=== PATIENT | female | born 1985 ===

== ENCOUNTER 2023-01-24 09:49 | Emergency (ER) | payer OTHER, SELFPAY ==
--- NOTE | ~2023-01-24 | US_ITS ---
EXAMINATION: US PELVIS CLINICAL INFORMATION: Left lower quadrant pain COMPARISON: CT scan abdomen and pelvis 01/24/2023 TECHNIQUE: Ultrasound of the pelvis is performed using both transabdominal and transvaginal transducers along with Doppler. Transvaginal imaging is performed due to inadequate visualization transabdominally. FINDINGS: The uterus and cervix have been removed. Adnexa: There is normal arterial and vascular color flow to the left ovary. There is no left ovarian torsion. The right ovary has been removed. Left ovary measures 2.8 x 2.4 x 2.3 cm. Volume 8.1 mL. Within the left ovary, there is a 2.2 x 1.4 x 1.7 cm complex focus,? Complex cyst versus mass. There is a small amount of free fluid within the left adnexa. US/US pelvic and transvaginal IMPRESSION: 1. Prior hysterectomy and right oophorectomy. 2. 2.2 cm complex focus is seen within the left ovary.? Complex cyst versus mass. Follow-up ultrasound in 2-3 months is suggested.
--- NOTE | ~2023-01-24 | US_ITS ---
EXAMINATION: US PELVIS CLINICAL INFORMATION: Left lower quadrant pain COMPARISON: CT scan abdomen and pelvis 01/24/2023 TECHNIQUE: Ultrasound of the pelvis is performed using both transabdominal and transvaginal transducers along with Doppler. Transvaginal imaging is performed due to inadequate visualization transabdominally. FINDINGS: The uterus and cervix have been removed. Adnexa: There is normal arterial and vascular color flow to the left ovary. There is no left ovarian torsion. The right ovary has been removed. Left ovary measures 2.8 x 2.4 x 2.3 cm. Volume 8.1 mL. Within the left ovary, there is a 2.2 x 1.4 x 1.7 cm complex focus,? Complex cyst versus mass. There is a small amount of free fluid within the left adnexa. US/US pelvic ovarian doppler IMPRESSION: 1. Prior hysterectomy and right oophorectomy. 2. 2.2 cm complex focus is seen within the left ovary.? Complex cyst versus mass. Follow-up ultrasound in 2-3 months is suggested.
--- NOTE | ~2023-01-24 | CT_ITS ---
EXAMINATION: CT abdomen pelvis wo IV con CLINICAL INFORMATION: Reason for Exam L sided pelvic pain without contrast COMPARISON: No prior CT available for comparison. TECHNIQUE: Multidetector volumetric imaging was performed from the superior aspect of the liver through the pubic symphysis 100 mL of Omnipaque 350 injected Sagittal and coronal reformatted images were obtained on the technologist's workstation. This CT examination was performed using dose optimization techniques as appropriate, variously including the following: *Automated exposure control *Adjustment of mA and/or kV according to patient size (this includes techniques or standardized protocols for targeted exams where dose is matched to indication/reason for exam; i.e. extremities or head) *Use of iterative reconstruction technique DLP: 335 mGy-cm FINDINGS: LOWER THORAX: Included lung bases are clear. HEPATOBILIARY: No focal hepatic lesions. No biliary ductal dilatation. GALLBLADDER: Gallbladder unremarkable. SPLEEN: Spleen is normal in size. PANCREAS: No focal mass or ductal dilatation. STOMACH AND GASTROINTESTINAL TRACT: Stomach is grossly unremarkable. There is no bowel distention or thickening. Appendix could not be visualized obscured by crowding of bowel loops and paucity of intraperitoneal fat. Excess amount of stool in the colon suggests possible constipation. ADRENALS: No adrenal nodules. KIDNEYS/URETERS: No hydronephrosis, stones or solid mass lesions. URINARY BLADDER: Partially decompressed. PELVIC VISCERA: Fluid-filled cystic structure in the right side of the pelvis abutting the rectum roughly measures 3.4 cm possibly of right ovarian origin in this patient age group likely follicle. No follow-up imaging required. PERITONEUM: No free air or fluid. LYMPH NODES: No lymphadenopathy. VASCULAR:Abdominal aorta normal in size, no aneurysm found. BONES, ABDOMINAL WALL AND SOFT TISSUES: Age-appropriate changes of the spine and skeletal system, no destructive osteolytic or osteosclerotic bone lesion found CT/CT abdomen pelvis wo IV con IMPRESSION: * No CT evidence of acute intra-abdominal process to explain patient's pain symptoms. * Fluid-filled cystic structure in the right side of the pelvis 3.4 cm possibly of right ovarian origin in this patient age group likely follicle. No follow-up imaging required. * Possible constipation. Please correlate with patient's clinical history.
[2023-01-24 10:13] VITALS: BP 107/63; PULSE 74; RESP 18; TEMP 36.6; O2SAT 95; BMI 20.5
[2023-01-24 10:36] LABS: MANUAL DIFF FLAG NO
[2023-01-24 10:40] LABS: Appearance Urine Cloudy; Basophils Absolute Auto 0.1 X10*3/uL (0.0-0.2); Basophils Percent Auto 0.8 % (0-2); Color Urine Yellow; Eosinophils Absolute Auto 0.2 X10*3/uL (0.0-0.4); Eosinophils Percent Auto 3.5 % (0-4); Glucose Urine UA Negative (Negative); Hematocrit 38.6 % (37.0-47.0); Hemoglobin 12.5 g/dl (12.0-16.0); Imm Gran Abs Auto 0.02 X10*3/uL (0.00-0.03); Imm Gran Pct Auto 0.3 % (0.0-0.4); Leukocyte Esterase Urine Moderate (2+) (Negative); Lymphocytes Absolute Auto 1.6 X10*3/uL (1.2-4.9); Lymphocytes Percent Auto 25.1 % (20-40); Mean Corpuscular HGB Conc 32.4 g/dl (31.0-35.0); Mean Corpuscular Volume 89.6 fL (80.0-98.0); Mean Platelet Volume 9.7 fL (9.4-12.3); Monocytes Absolute Auto 0.6 X10*3/uL (0.1-1.2); Monocytes Percent Auto 9.8 % (2-11); Neutrophils Percent Auto 60.5 % (45-73); Nitrite Urine Positive (Negative); Platelet Count 399 X10*3/uL (160-400); Red Blood Count 4.31 X10*6/uL (4.20-5.50); Red Cell Distribution Width 14.6 % (11.0-16.0); Specific Gravity - Urine 1.025 (1.005-1.025); UMIC TRIGGER UACC YES; Urine Blood Large (3+) (Negative); Urine Ketones Negative (Negative); Urine Protein 100 (2+) mg/dL (Neg-Trace); White Blood Count 6.5 X10*3/uL (4.8-10.8)
[2023-01-24 10:42] LABS: Bacteria Urine 2+ (None Seen); Hyaline Casts Urine 0-2 /LPF (0-2); RBC Urine >20 /HPF (0-2); Squamous Epithelial Cell Urine 0-2 /HPF (0-2); UACC Culture Trigger YES; WBC Urine >50 /HPF (0-5)
--- NOTE | 2023-01-24 10:49 | ED_ITS ---
HPI - Abdominal Pain General Chief Complaint: Abdominal Pain Stated Complaint: Bladder pain/Blood in urine? Time Seen by Provider: 01/24/23 10:29 Source: patient Mode of arrival: ambulatory Limitations: no limitations History of Present Illness HPI narrative: 37 year old female presents for evaluation of LLQ abd pain/ pelvic pain, burning w/ urination and blood in urine X few days. Patient reports pain is constant, severe and has been present for a few days. Doesn't think she is has a hx of hysterectomy. Hx of ovarian cysts however w/ r sided oophorectomy. Patient denies nausea, vomiting, headache, vision canges, dizziness, fevers, chills, flank pain, cp, sob , vaginal d/c & bleeding Related Data Previous Rx's Medication Instructions Recorded cefuroxime axetil 250 mg tablet 250 mg PO BID 7 days #14 tabs 01/24/23 ketorolac 10 mg tablet 10 mg PO TID PRN pain 5 days #15 01/24/23 tabs Allergies Allergy/AdvReac Type Severity Reaction Status Date / Time ciprofloxacin [From Cipro] Allergy Hives Verified 01/24/23 10:17 duloxetine [From Cymbalta] Allergy Shortness Verified 01/24/23 10:17 of Breath Review of Systems Review of Systems Constitutional : No Weight loss, No Fever, No Chills, No Fatigue, No Malaise ENT/Mouth : No sore throat, No Rhinorrhea Eyes: No Eye Pain, No Swelling, No Redness Cardiovascular : No Chest Pain, No SOB, No Dyspnea on Exertion, No Orthopnea, No Edema, No Palpitations Respiratory : No Cough, No Sputum, No Wheezing Gastrointestinal : No Nausea, No Vomiting, No Diarrhea, No Constipation, + abdominal Pain, No Hematochezia, No Melena, + pelvic pain Genitourinary : No Dysuria, No Urinary Frequency, No Hematuria, Musculoskeletal : No joint pain, No Myalgias, No Joint Swelling Skin : No Skin Lesions, No rash Neuro : No Weakness, No Numbness, No Dizziness, No Headache Psych : No Anxiety/Panic, No Depression All other systems reviewed and are negative Yes all other systems are reviewed and are negative PMFSH Past Medical History Attestation statement: The following information was validated with the patient. Source: old records reviewed and nursing notes reviewed Social History Social History Smoked in Last 30 Days: No Use of substances other than those prescribed or required for medical reasons: No Advance Directives: No Advance Directives Information Provided: Yes Patient : No Physical Exam ED Vital Signs: Vital Signs - 24 hr 01/24/23 10:13 01/24/23 10:51 01/24/23 12:37 Temperature 97.8 F 99.0 F 98.3 F Pulse Rate 74 73 55 Respiratory Rate 18 18 16 Blood Pressure 107/63 104/62 107/66 Pulse Oximetry 95 100 100 Oxygen Delivery Method Room Air Room Air Room Air 01/24/23 14:00 Temperature Pulse Rate 60 Respiratory Rate 16 Blood Pressure 108/61 Pulse Oximetry 100 Oxygen Delivery Method Room Air BMI result Body Mass Index 20.5 vss Appearance: Alert.? Oriented X3.?Patient appears uncomfortable. Head: Normocephalic, atraumatic, no step-offs or deformities Eyes: Pupils equal, round and reactive to light.? Neck: Normal inspection.? Neck supple.? CVS: Normal heart rate and rhythm.? Pulses normal.? Respiratory: No respiratory distress.? Breath sounds normal.? Abdomen: Soft and + LLQ tenderness on exam .? Skin: Skin warm and dry.? Normal skin color.? Normal skin turgor.? Extremities: No lower extremity edema.? No calf ttp. 5/5 strength to bilateral upper and lower extremities Neuro: Oriented X 3.? No motor deficit.? No sensory deficit. CN 2-12 intact Course Reevaluation(s) Reevaluation #1: CBC unremarkable. Chemistry with a low glucose initially, repeat glucose improved. Patient's lactic acid normal. Normal lipase normal beta hCG. UA with infection, will prescribe p.o. antibiotics for home. Ultrasound with prior hysterectomy and right oophorectomy, 2.2 cm complex focus within the left ovary question cyst versus mass I did discuss this with patient she tells me she did have a OBGYN doctor however she recently moved from [place], will give her a number to call for an OBGYN appointment here. Recommend repeat ultrasound in 2- 3 months. Time: 15:20 Reevaluation #2: Delay in obtaining results from imaging secondary to a delay with [facility]. Will continue to monitor Time: 16:14 Reevaluation #3: CT abdomen pelvis with no evidence of acute intra-abdominal process to explain patient's symptoms. Fluid-filled cystic structure in the right side of pelvis 3.48 cm possibly of right ovarian origin of the patient's age group, no follow- up imaging required. Possible constipation, patient complaining of constipation. Will treat for UTI discharge home. Patient feeling better. Educated patient on diagnosis and treatment plan, answered all question, patient verbalizes understanding. At this time patient will be discharged home, advised to return with new or worsening symptoms. Educated on worrisome signs and symptoms and when to return. At this time I feel comfortable discharge home. Time: 16:35 Medical Decision Making Medical Decision Making [facility] Narrative: 1052 37 year old female presents w/ UTI sx X few days w/ a/c LLQ pain and pelvic pain on left side. PE w/ LLQ discomfort Likely UTI vs cystitis vs diverticulitis vs pylo vs obstructing uropathy. Unlikely torsion, ectopic pregancy, ruptured ovarian cyst, acute abdomen, appendicitis, cholecysitis, obstruction. Plan- UA, labs, imaging Differential Diagnosis Differential Diagnoses: The differential diagnosis associated with the presentation includes Likely UTI vs cystitis vs diverticulitis vs pylo vs obstructing uropathy. Unlikely torsion, ectopic pregancy, ruptured ovarian cyst, acute abdomen, appendicitis, cholecysitis, obstruction. Admission/Observation Consideration of admission/observation: Escalation of care including admission/observation considered Lab Data [facility] Lab Attestation statement: I reviewed the patient's lab results. 01/24/23 10:30 01/24/23 10:30 Labs: Lab Results 01/24/23 01/24/23 01/24/23 Range/Units 10:30 11:23 14:51 WBC 6.5 (4.8-10.8) X10*3/uL RBC 4.31 (4.20-5.50) X10*6/uL Hgb 12.5 (12.0-16.0) g/dl Hct 38.6 (37.0-47.0) % MCV 89.6 (80.0-98.0) fL MCH 29.0 (27.0-33.0) pg MCHC 32.4 (31.0-35.0) g/dl RDW 14.6 (11.0-16.0) % Plt Count 399 (160-400) X10*3/uL MPV 9.7 (9.4-12.3) fL Immature Gran % (Auto) 0.3 (0.0-0.4) % Neut % (Auto) 60.5 (45-73) % Lymph % (Auto) 25.1 (20-40) % [place] % (Auto) 9.8 (2-11) % Eos % (Auto) 3.5 (0-4) % Baso % (Auto) 0.8 (0-2) % Lymph # (Auto) 1.6 (1.2-4.9) X10*3/uL [place] # (Auto) 0.6 (0.1-1.2) X10*3/uL Eos # (Auto) 0.2 (0.0-0.4) X10*3/uL Baso # (Auto) 0.1 (0.0-0.2) X10*3/uL Abs Immat Gran (auto) 0.02 (0.00-0.03) X10*3/uL Absolute Neuts (auto) 4.0 (2.0-8.3) x10*3/uL Absolute Nucleated RBC 0.000 (0.0-0.012) X10*3/uL Nucleated RBC % (auto) 0.0 (0.0-0.2) /100WBC Sodium 141 (135-145) mmol/L Potassium 4.1 (3.3-5.1) mmol/L Chloride 108 (96-108) mmol/L Carbon Dioxide 27 (22-29) mmol/L Anion Gap 10 L (12-20) BUN 15 (9-16) mg/dL Creatinine 0.74 (0.5-1.4) mg/dL Estim Creat Clear Calc 86.0 Estimated GFR > 60 POC Glucose 74 (60-115) mg/dL Random Glucose 52 L* (60-115) mg/dL Lactic Acid 1.2 (0.5-2.0) mmol/L Calcium 9.7 (8.4-10.2) mg/dL Total Bilirubin 0.3 (0.0-1.0) mg/dL Direct Bilirubin 0.1 (0.0-0.5) mg/dL AST 18 (5-31) U/L ALT 13 (0-31) U/L Alkaline Phosphatase 94 (39-117) U/L Total Protein 7.5 (6.5-8.0) g/dL Albumin 4.5 (3.5-5.0) g/dL Lipase 28 (8-78) U/L Beta HCG, Quant < 2 mIU/mL Urine Color Yellow Urine Appearance Cloudy Urine pH 6.0 (5.0-9.0) Ur Specific [place] 1.025 (1.005-1.025) Urine Protein 100 (2+) H (Neg-Trace) mg/dL Urine Glucose (UA) Negative (Negative) mg/dL Urine Ketones Negative (Negative) mg/dL Urine Blood Large (3+) H (Negative) Urine Nitrite Positive H (Negative) Ur Leukocyte Esterase Moderate (2+) H (Negative) Urine RBC >20 H (0-2) /HPF Urine WBC >50 H (0-5) /HPF Ur Squamous Epith Cells 0-2 (0-2) /HPF Urine Bacteria 2+ (None Seen) Hyaline Casts 0-2 (0-2) /LPF Urine Test NEGATIVE (NEGATIVE) Independent Interpretation I performed an independent interpretation of an: Ultrasound (There is no left ovarian torsion. The right ovary has been removed. Left ovary measures 2.8 x 2.4 x 2.3 cm. Volume 8.1 mL. Within the left ovary, there is a 2.2 x 1.4 x 1.7 cm complex focus,? Complex cyst versus mass. There is a small amount of free fluid within the left adnexa. ) and CT Scan (CT/CT abdomen pelvis wo IV con IMPRESSION: * No CT evidence of acute intra-abdominal process to explain patient's pain symptoms. * Fluid-filled cystic structure in the right side of the pelvis 3.4 cm possibly of right ovarian origin in this patient age group likely follicle. No follow-up imag) Radiology Impression Discussion of test interpretation with radiology: I have reviewed the radiologist's reading. Chronic Conditions Patient?s care impacted by: Other (ovarian cysts ) Medications Administered Discontinued Medications Generic Name Dose Route Start Last Admin Trade Name Freq PRN Reason Stop Dose Admin Glucose 15 gm 01/24/23 10:55 01/24/23 11:13 Glucose Gel 15 Gm Gel..Gram. PO 01/24/23 10:56 15 gm ONCE ONE Administration Sodium Chloride 1,000 mls @ 999 mls/hr 01/24/23 11:00 01/24/23 12:58 Ns IV 01/24/23 12:00 Infused .Q1H1M KIM Infusion Ceftriaxone Sodium 1 gm/ 50 mls @ 100 mls/hr 01/24/23 10:56 01/24/23 12:13 Sodium Chloride IV 01/24/23 11:25 Infused ONCE ONE Infusion Ketorolac Tromethamine 30 mg 01/24/23 11:20 01/24/23 11:44 Ketorolac Tromethamine 15 Mg/Ml Vial IVPUSH 01/24/23 11:21 30 mg ONCE ONE Administration Morphine Sulfate 2 mg 01/24/23 14:07 01/24/23 14:12 Morphine Sulfate 2 Mg/Ml Cartridge IVPUSH 01/24/23 14:08 2 mg ONCE ONE Administration Protocol Critical Care Time Critical Care Time Critical Care Time: No Discharge Plan Discharge Clinical Impression: UTI (urinary tract infection), Mass, ovarian, Abdominal pain Patient Disposition: Home, Self-Care Instructions: Urinary Tract Infection in Women (DC) Additional Instructions: Take your medications as prescribed. If you were prescribed antibiotics today, it is important that you take your medication to their entirety, do not skip any doses, do not finish them early. Follow-up with your primary care provider this week. Follow up with OBGYN Return to the emergency department with new or worsening symptoms. Such as fevers, chills, chest pain, shortness of breath, nausea, vomiting, dizziness, headache, vision changes, lethargy In case of emergency call 911 Toradol has been sent to your pharmacy, you tolerated this well in the department. Please take this as prescribed do not take this with ibuprofen, or other NSAIDs, do not mix this with alcohol. Side effects of this medication including increased risk for bleeding and possible kidney injury. CT/CT abdomen pelvis wo IV con IMPRESSION: * No CT evidence of acute intra-abdominal process to explain patient's pain symptoms. * Fluid-filled cystic structure in the right side of the pelvis 3.4 cm possibly of right ovarian origin in this patient age group likely follicle. No follow-up imaging required. * Possible constipation. Please correlate with patient's clinical history. US/US pelvic and transvaginal IMPRESSION: 1. Prior hysterectomy and right oophorectomy. 2. 2.2 cm complex focus is seen within the left ovary.? Complex cyst versus mass. Follow-up ultrasound in 2-3 months is suggested. Prescriptions: New ketorolac 10 mg tablet 10 mg PO TID PRN (Reason: pain) 5 Days Qty: 15 0RF cefuroxime axetil 250 mg tablet 250 mg PO BID 7 Days Qty: 14 0RF Referrals: Physician,Richard J [Primary Care Provider] - 2 days Timmy Meyer MD [Physician] - 2 days Stand Alone Forms: Work/School Release
[2023-01-24 10:51] VITALS: BP 104/62; PULSE 73; RESP 18; TEMP 37.2; O2SAT 100
[2023-01-24 10:56] LABS: Alanine Aminotransferase 13 U/L (0-31); Albumin Level 4.5 g/dL (3.5-5.0); Alkaline Phosphatase 94 U/L (39-117); Anion Gap 10 (12-20); Aspartate Amino Transferase 18 U/L (5-31); Bilirubin Direct 0.1 mg/dL (0.0-0.5); Bilirubin Total 0.3 mg/dL (0.0-1.0); Blood Urea Nitrogen 15 mg/dL (9-16); Calcium 9.7 mg/dL (8.4-10.2); Carbon Dioxide 27 mmol/L (22-29); Chloride 108 mmol/L (96-108); Estimated Glomerular Filt Rate > 60; Glucose Random 52 mg/dL (60-115); Lipase 28 U/L (8-78); Potassium 4.1 mmol/L (3.3-5.1); Sodium 141 mmol/L (135-145); Total Protein 7.5 g/dL (6.5-8.0)
--- NOTE | 2023-01-24 11:03 | PC.NURSE ---
vss and up to date aside from low grade fever (99.0 orally) at this time. pt comes in today d/t generalized body aches and pain. pt c/o abdominal pain/left sided flank pain/dysuria/hematuria/fever/chills for the past few days. pt awaiting CT/aware of plan of care at this time. respirations even and unlabored. resting comfortably w/ the lights dimmed at this time. call patel placed within reach.
[2023-01-24] MEDS: Glucose Gel 15 GM GEL..GRAM. PO (11:13)
[2023-01-24 11:42] LABS: Lactic Acid 1.2 mmol/L (0.5-2.0)
[2023-01-24] MEDS: cefTRIAXone sodium 1 GM in 0.9 % Sodium Chloride 50 ML IV (11:43)
[2023-01-24] MEDS: Ketorolac Tromethamine 15 MG/ML VIAL 30 MG IVPUSH (11:44)
[2023-01-24] MEDS: 0.9 % Sodium Chloride 1,000 ML 999 ML IV (11:44)
--- NOTE | 2023-01-24 11:48 | PC.NURSE ---
labs obtained and sent to lab by [employer] 20gIV placed in left AC w/o complications. medications administered per provider order. pt resting comfortably w/ lights dimmed. call patel placed within reach.
--- NOTE | 2023-01-24 11:49 | PC.NURSE ---
ultrasound bedside transporting pt.
[2023-01-24 12:36] LABS: UPreg QC Valid YES; Urine Pregnancy NEGATIVE (NEGATIVE)
--- NOTE | 2023-01-24 12:36 | PC.NURSE ---
pt returned from ultrasound. vss and up to date at this time. pt c/o 8/10 abdominal pain post medication administration. pt states pain level increased d/t pressure of ultrasound imaging. will notify provider. call patel placed within reach.
[2023-01-24 12:37] VITALS: BP 107/66; PULSE 55; RESP 16; TEMP 36.8; O2SAT 100
[2023-01-24 12:56] LABS: HCG Quantitative < 2 mIU/mL
[2023-01-24 14:00] VITALS: BP 108/61; PULSE 60; RESP 16; O2SAT 100
[2023-01-24] MEDS: Morphine Sulfate 2 MG/ML CARTRIDGE IVPUSH (14:12)
--- NOTE | 2023-01-24 14:15 | PC.NURSE ---
vss and up to date at this time. pt still verbalizing 8/10 generalized body pain at this time. pt medicated per provider order. will reassess pain level shortly. pt c/o nausea/requesting medication. will notify provider.
--- NOTE | 2023-01-24 14:51 | PC.NURSE ---
pt states pain level decreased post medication administration and states that the pain level is now a 1/10 at this time. pt resting comfortably in no apparent distress at this time w/ the lights dimmed. call patel placed within reach.
[2023-01-24 14:55] LABS: Glucose, Whole Blood 74 mg/dL (60-115)
== END 2023-01-24 16:44 | disposition home or self-care (01) ==
PROVIDERS: Physician Assistant; Emergency Provider Student in an Organized Health Care Education/Training Program
DX: N39.0 Urinary tract infection, site not specified (principal); B96.20 Unspecified Escherichia coli [E. coli] as the cause of diseases classified elsewhere; N83.201 Unspecified ovarian cyst, right side; R10.32 Left lower quadrant pain; R10.2 Pelvic and perineal pain; Z90.710 Acquired absence of both cervix and uterus; Z90.721 Acquired absence of ovaries, unilateral
CPT/HCPCS: 36415; 74176; 76830; 76856; 80048; 80076; 81001; 81025; 82947; 83605; 83690; 84702; 85025; 87040; 87086; 87088; 87186; 93975; 96365; 96375; 99284; 99285; J0696; J1885; J2270

== ENCOUNTER 2023-12-07 07:54 | Outpatient (AMB) | payer OTHER, SELFPAY ==
[2023-12-07 08:01] VITALS: BP 110/72; BMI 22.3
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
== END 2023-12-07 09:42 | disposition home or self-care (01) ==
PROVIDERS: PCP Student in an Organized Health Care Education/Training Program; Visit Provider Nurse Practitioner Family
DX: G43.009 Migraine without aura, not intractable, without status migrainosus (principal); H53.2 Diplopia; R42 Dizziness and giddiness; R26.9 Unspecified abnormalities of gait and mobility; G47.9 Sleep disorder, unspecified; R06.83 Snoring; R06.81 Apnea, not elsewhere classified
CPT/HCPCS: 99204

== ENCOUNTER → 2023-12-07 07:54 | Outpatient (BNVA) | payer OTHER, SELFPAY | PROVIDERS: PCP Student in an Organized Health Care Education/Training Program; Visit Provider Nurse Practitioner Family | DX: G43.009 Migraine without aura, not intractable, without status migrainosus (principal); G47.9 Sleep disorder, unspecified; H53.2 Diplopia; R42 Dizziness and giddiness; R26.9 Unspecified abnormalities of gait and mobility; R06.83 Snoring; R06.81 Apnea, not elsewhere classified | CPT/HCPCS: 99202 ==

== ENCOUNTER 2023-12-20 10:45 | Outpatient (REF) | payer OTHER, SELFPAY ==
[2023-12-20 18:03] LABS: MANUAL DIFF FLAG NO
[2023-12-20 18:14] LABS: Basophils Absolute Auto 0.1 X10*3/uL (0.0-0.2); Basophils Percent Auto 1.6 % (0-2); Eosinophils Absolute Auto 0.3 X10*3/uL (0.0-0.4); Eosinophils Percent Auto 5.8 % (0-4); Hematocrit 40.2 % (37.0-47.0); Hemoglobin 13.2 g/dl (12.0-16.0); Imm Gran Abs Auto 0.01 X10*3/uL (0.00-0.03); Imm Gran Pct Auto 0.2 % (0.0-0.4); Lymphocytes Absolute Auto 1.8 X10*3/uL (1.2-4.9); Lymphocytes Percent Auto 41.2 % (20-40); Mean Corpuscular HGB Conc 32.8 g/dl (31.0-35.0); Mean Corpuscular Hemoglobin 29.5 pg (27.0-33.0); Mean Corpuscular Volume 89.9 fL (80.0-98.0); Mean Platelet Volume 10.2 fL (9.4-12.3); Monocytes Absolute Auto 0.5 X10*3/uL (0.1-1.2); Monocytes Percent Auto 11.1 % (2-11); Neutrophils Absolute Auto 1.7 x10*3/uL (2.0-8.3); Neutrophils Percent Auto 40.1 % (45-73); Platelet Count 376 X10*3/uL (160-400); Red Blood Count 4.47 X10*6/uL (4.20-5.50); Red Cell Distribution Width 13.5 % (11.0-16.0); White Blood Count 4.3 X10*3/uL (4.8-10.8)
[2023-12-20 18:32] LABS: Rheumatoid Factor < 13.0 IU/mL (<15.0)
[2023-12-20 18:36] LABS: Alanine Aminotransferase 19 U/L (0-31); Albumin Level 4.8 g/dL (3.5-5.0); Alkaline Phosphatase 101 U/L (39-117); Anion Gap 14 (12-20); Aspartate Amino Transferase 20 U/L (5-31); Bilirubin Total 0.4 mg/dL (0.0-1.0); Blood Urea Nitrogen 14 mg/dL (9-16); Calcium 9.7 mg/dL (8.4-10.2); Carbon Dioxide 26 mmol/L (22-29); Chloride 106 mmol/L (96-108); Estimated Glomerular Filt Rate > 60; Glucose Random 93 mg/dL (60-115); Sodium 142 mmol/L (135-145); Total Protein 7.9 g/dL (6.5-8.0)
[2023-12-20 19:10] LABS: Erythrocyte Sedimentation Rate 6 MM/HR (0-20)
[2023-12-23 02:33] LABS: CRP High Sensitivity 0.9 mg/L
[2023-12-26 08:14] LABS: Anti Nuclear Antibody Screen NEGATIVE (NEGATIVE)
== END 2023-12-20 10:46 | disposition home or self-care (01) ==
LOC: HO.HKASLDS 10:45
PROVIDERS: Visit Provider Nurse Practitioner Family
DX: R53.83 Other fatigue (principal); M19.90 Unspecified osteoarthritis, unspecified site; R42 Dizziness and giddiness; G43.009 Migraine without aura, not intractable, without status migrainosus
CPT/HCPCS: 36415; 80053; 85025; 85652; 86038; 86141; 86431

== ENCOUNTER 2024-01-31 15:35 | Outpatient (REF) | payer OTHER, SELFPAY ==
--- NOTE | ~2024-01-31 | MR_ITS ---
EXAMINATION: MR BRAIN WITHOUT AND WITH CONTRAST CLINICAL INFORMATION: Diplopia. COMPARISON: None available. TECHNIQUE: MRI of the brain was obtained using routine sequences without and following the administration of 6 mL of Gadavist intravenous contrast. FINDINGS: No focal restricted diffusion is demonstrated to suggest acute or subacute cerebral ischemia. No evidence of acute or chronic hemorrhagic products on heme-sensitive imaging. Few nonspecific scattered foci of T2 FLAIR hyperintensity within the bifrontal lobes. No additional parenchymal signal abnormalities. Proportional prominence of the ventricles and sulcal spaces without evidence of obstructive hydrocephalus. Nonspecific 0.7 cm cystic space in the inferior left frontal lobe without suspicious enhancement suggestive of a prominent perivascular space. No abnormal mass effect. No midline shift. Normal appearance of the pituitary gland. The suprasellar cistern remains widely patent. Normal positioning of the cerebellar tonsils. Small developmental venous anomaly in the anterior right frontal lobe. Normal arterial and venous vascular flow voids are present. No abnormal contrast enhancement. Normal, homogeneous marrow signal. Mild mucosal thickening of the paranasal sinuses. No signal abnormalities within the mastoids. No demonstrated abnormalities of the orbits on limited evaluation. MR/MR head/brain wo/w con IMPRESSION: 1. No acute intracranial abnormalities. No abnormal intracranial enhancement. 2. Minimal nonspecific white matter changes. 3. No additional MRI abnormalities to explain the patient's symptoms. Electronically signed by: Amadou Huang DO 02/28/2024 06:41 AM EST
[2024-01-31] MEDS: gadobutroL 7.5 ML VIAL IVPUSH (16:21)
== END 2024-01-31 15:36 | disposition home or self-care (01) ==
LOC: HO.MRI 15:35
PROVIDERS: Visit Provider Nurse Practitioner Family
DX: H53.2 Diplopia (principal); R42 Dizziness and giddiness; R26.9 Unspecified abnormalities of gait and mobility; G43.009 Migraine without aura, not intractable, without status migrainosus
CPT/HCPCS: 70553; A9585

== ENCOUNTER → 2024-03-04 10:30 | Outpatient (BNVA) | payer OTHER, SELFPAY | PROVIDERS: Visit Provider Nurse Practitioner Family ==

== ENCOUNTER 2024-03-23 16:39 | Outpatient (REF) | payer OTHER, SELFPAY ==
--- NOTE | ~2024-03-23 | MR_ITS ---
EXAMINATION: MR BRAIN WITHOUT THEN WITH IV CONTRAST HISTORY: DIPLOPIA, DIZZINESS, ABN TANDEM WALK TECHNIQUE: Sagittal T1, and axial T1, FLAIR, T2, gradient echo, and diffusion weighted MR images of the brain were obtained. Subsequently, axial, and coronal T1-weighted images were obtained after the administration of intravenous gadolinium. 5.5 mL Gadavist was administered. COMPARISON: Comparison is made with the prior examination dated 01/31/2024. FINDINGS: Again seen are a few scattered nonspecific white matter hyperintensities on the FLAIR and T2-weighted images without change. Kim/white differentiation is otherwise normal. There is no mass effect or midline shift. The ventricular system is normal in size and configuration. Again seen is a tiny cyst of the left frontal lobe without associated enhancement. No intra or extra-axial fluid collections are identified. There are no foci of restricted diffusion. There is no abnormal contrast enhancement. Normal vascular flow voids are noted in the basilar and carotid arteries. The visualized paranasal sinuses are clear. MR/MR head/brain wo/w con IMPRESSION: No acute intracranial abnormality. No evidence of an acute infarct or abnormal contrast enhancement. Electronically signed by: Terry Wilburn MD 03/25/2024 10:30 AM [facility]
[2024-03-23] MEDS: gadobutroL 7.5 ML VIAL IVPUSH (17:32)
== END 2024-03-23 16:40 | disposition home or self-care (01) ==
LOC: HO.MRI 16:39
PROVIDERS: Visit Provider Nurse Practitioner Family
DX: H53.2 Diplopia (principal); R42 Dizziness and giddiness; R26.9 Unspecified abnormalities of gait and mobility
CPT/HCPCS: 70553; A9585

== ENCOUNTER → 2024-03-23 17:06 | Outpatient (BNV) | payer OTHER, SELFPAY | PROVIDERS: Visit Provider Radiology Diagnostic Radiology | DX: R42 Dizziness and giddiness (principal); H53.2 Diplopia; R26.89 Other abnormalities of gait and mobility | CPT/HCPCS: 70553 ==

== ENCOUNTER 2024-04-04 07:32 | Outpatient (AMB) | payer OTHER, SELFPAY ==
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
== END 2024-04-04 12:03 | disposition home or self-care (01) ==
PROVIDERS: PCP Student in an Organized Health Care Education/Training Program; Visit Provider Nurse Practitioner Family
DX: H53.2 Diplopia (principal); H53.8 Other visual disturbances; G43.009 Migraine without aura, not intractable, without status migrainosus; R42 Dizziness and giddiness; R26.9 Unspecified abnormalities of gait and mobility; G47.9 Sleep disorder, unspecified; R06.83 Snoring; R06.81 Apnea, not elsewhere classified
CPT/HCPCS: 98014

== ENCOUNTER → 2024-05-21 12:35 | Outpatient (REF) | payer OTHER, SELFPAY ==
--- OUTSIDE RECORDS SUMMARY | 2024-05-21 15:37 | XMS_ITS | Encounter Summary ---
Author Organization [email or web address] Address [address] [facility] 7 [place] [address] Care Team Providers Care Commercial Counsel Name Role Phone Unavailable Primary Care Provider Unavailabl e Reason for Visit * Reason Onset Date Comments New patient 12/23/2022 Encounter Details Date Type Department Care Team (Late st Contact Info) Description 12/23/2022 Telephone [facility] [address] [place], [place] [phone] Young Mancini MD [address] [place], [place] [phone] New patient Social History Tobacco Use Types Packs/Day Years Used Date Smoking Tobacco: Never Assessed Comments Unknown Sex and Gender Information Value Date Recorded Sex Assigned at Not on file Legal Sex Female 11:50 AM EDT Gender Identity Not on file Sexual Orientation Not on file documented as of this encounter Miscellaneous Notes * Telephone Encounter - Daron Dale - 12/23/2022 8:45 AM EDT 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
--- OUTSIDE RECORDS SUMMARY | 2024-05-21 15:37 | XMS_ITS | Encounter Summary ---
Author Organization [facility] Address [address] [place] [address] Care Team Providers Care Quilter Fixer Name Role Phone Abi Gómez DO Primary Care Provider [phone] Reason for Visit * Reason Comments Med Refill Encounter Details Date Type Department Care Team (Late st Contact Info) Description 04/20/2024 Refill [facility] [address] [place], [place] [phone] Era Rivera PA [address] [place], [place] [phone] Social History Tobacco Use Types Packs/Day Years Used Date Smoking Tobacco: Never Passive Smoke Exposure: Past Smokeless Tobacco: Never Alcohol Use Standard Drinks/Week Comments Not Currently 0 (1 standard drink = 0.6 oz pur e alcohol) 15 years ago [facility] Utilities Answer Date Recorded In the past 12 months has e [employer]THER[employer], gas, oil, or water [employer] threatened to shut off services in your home? No 09/18/2023 Hunger Vital Sign Answer Date Recorded Within the past 12 months, y ou worried that your food would run out before you got the money to buy more. Sometimes true Within the past 12 months, t he food you bought just didn't last and you didn't have money to get more. Sometimes true 03/2023 Transportation Answer Date Recorded In the past 12 months, has l ack of reliable transportation kept you from medical appointments, meetings, work or from getting things needed for daily living? Yes 09/18/2023 Housing Answer Date Recorded Housing Risk Low Not on file 09/18/2023 Housing Risk Medium 1 09/18/2023 Housing Risk High Not on file 09/18/2023 What is your living situation today? [facility] SING 09/18/2023 Comments No Sex and Gender Information Value Date Recorded Sex Assigned at Female 06/02/2023 7:22 PM EDT Legal Sex Female 5:18 PM EDT Gender Identity Female 07/05/2023 7:24 AM EDT Sexual Orientation Straight 07/05/2023 7: 24 AM EDT documented as of this encounter Plan of Treatment Upcoming Encounters Date Type Department Care Team (Late st Contact Info) Description 06/11/2024 3:00 PM EDT Follow-Up [facility] [address] [place] [id number] Supervisor Special Services: Lexus Hood NP [address] [place] [phone] 06/27/2024 11:30 AM EDT Social Work [facility] [address] [place] [phone] Monica Hurst LICSW [address] [place] [id number] 08/01/2024 11:15 AM EDT Telehealth [facility] [address] [place] [phone] Abi Gómez DO [address] [place] [phone] 08/28/2024 11:40 AM EDT Follow-Up [facility] [address] [place] [phone] Supervisor Special Services: Sohail Magana MD [address] [place] [address] [place] [address] documented as of this encounter Visit Diagnoses Not on filedocumented in this encounter Care Teams Quilter Fixer Relationship Specialty Start Date End Date Abi Gómez DO [address] [place] [id number] PCP - General Internal Medicine 04/29/24 documented as of this encounter
--- OUTSIDE RECORDS SUMMARY | 2024-05-21 15:37 | XMS_ITS | Clinical Summary ---
Author Organization [facility] it Address [address] [place] [address] Care Team Providers Care [facility] Assistant Director Name Role Phone Wade Randall MD Primary Care Provider Allergies Active Allergy Reactions Criticality Noted Date Comments Ciprofloxacin-Hydrocortisone Hives 023 Duloxetine Wheezing 02/08/2023 Duloxetine Hcl 02/14/2023 Medications albuterol HFA (PROAIR HFA ; PROVENTIL HFA ; VENTOLIN HFA) 90 mcg/actuation inhaler Inhale 2 Puffs into the lungs every 6 hours as needed for Cough, Wheezing or Shortness of Breath. 4 Active buPROPion XL (WELLBUTRIN XL) 300 mg 24 hr tablet Take 1 Tablet by mouth every morning. 4 Active docusate sodium (COLACE) 100 mg capsule Take 1 Capsule by mouth 2 times daily. 3 Active famotidine (PEPCID) 20 mg tablet Take 1 Tablet by mouth 2 times daily as needed for Heartburn. 3 Active guanFACINE (TENEX) 1 mg tablet Take 1 Tablet by mouth at bedtime. Active hydrOXYzine HCL (ATARAX) 25 mg tablet Take 1 Tablet by mouth 2 times daily. 3 Active leuprolide (Lupron Depot) 3.75 mg Inject 1 Kit into the muscle every 30 days. 4 Active milnacipran (SAVELLA) 50 mg tablet Take 1 Tablet by mouth daily. 4 Active nortriptyline (PAMELOR) 10 mg capsule Take 1 Capsule by mouth at bedtime. 3 Active polyethylene glycol (MIRALAX) 17 gram packet Take 17 g by mouth daily. 3 Active pregabalin (LYRICA) 200 mg capsule Take 1 Capsule by mouth 2 times daily. 4 Active senna (SENOKOT) 8.6 mg tablet Take 1 Tablet by mouth daily. 3 Active Active Problems Problem Noted Date Diagnosed Date Mild intermittent asthma, uncomplicated 05/17/19 24 Left ovarian cyst 03/07/2023 Overview (03/27/2024): 01/2023 ABDULKADIR cyst 2.2 x 1.4 x 1.7 cyst- at [facility] - recommend follow up 2-3 mo 03/07/2023 Fluid filled 2.3 cm left ovarian cyst. Previously seen hypoechoic left ovarian lesion is not demonstrated. Spondylosis 02/08/2023 Migraine without status migrainosus, not intract able 02/08/2023 Gastroesophageal reflux disease 02/08/2023 Fibromyalgia 02/08/2023 Endometriosis 02/08/2023 Constipation 02/08/2023 PTSD (post-traumatic stress disorder) 02/08/2023 Anxiety and depression 02/08/2023 Surgical History Surgery Date Site/Laterality Comments OOPHORECTOMY PROCEDURE: IN OOPHORECTOMY PARTIAL/TOTAL UNI/BI; COMMENT: right side HYSTERECTOMY PROCEDURE: HISTORICAL HYSTERECTOMY; COMMENT: hysterectomy w/ right oophrectomy OTHER SURGICAL HISTORY PROCEDURE: HISTORY OTHER; COMMENT: endometriosis OTHER SURGICAL HISTORY PROCEDURE: HISTORY OTHER; COMMENT: perforated bowel during surgery Medical History Medical History Date Comments Mild intermittent asthma, uncomplicated DX:Mild intermittent asthma, uncomplicated Endometriosis DX:Endometriosis Endometriosis 02/08/2023 DX:Endometriosis Migraine without status migr ainosus, not intractable 02/08/2023 DX:Migraine without status migrainosus, not intractable Anxiety and depression 02/08/2023 DX:Anxiet y and depression PTSD (post-traumatic stress disorder) 02/08/2023 DX:PTSD (post-traumatic stress disorder) Fibromyalgia 02/08/2023 DX:Fibromyalgia Spondylosis 02/08/2023 DX:Spondylosis Fibromyalgia DX:Fibromyalgia History of small bowel obstruction DX:History of small bowel obstruction Irritable bowel syndrome DX:Irri table bowel syndrome Change in bowel habit DX:Change in bowel habit Family History Medical History Relation Name Comments Ovarian cancer Neg Hx Relation Name Status Comments Father Alive Mother Alive Social History Tobacco Use Types Packs/Day Years Used Date Smoking Tobacco: Never Smokeless Tobacco: Never Alcohol Use Standard Drinks/Week Comments Never 0 (1 standard drink = 0.6 oz pur e alcohol) Comments Unknown Sex and Gender Information Value Date Recorded Sex Assigned at Not on file Legal Sex Female 8:20 PM EST Gender Identity Not on file Sexual Orientation Not on file Obstetrics History Last Filed Vital Signs Vital Sign Reading Time Taken Comments Blood Pressure 94/56 05/17/2023 7:34 AM EST Pulse 84 05/17/2023 7:34 AM EST Temperature - - Respiratory Rate - - Oxygen Saturation - - Inhaled Oxygen Concentration - - Weight 54.9 kg (121 lb) 05/17/2023 7:34 AM EST Height 160 cm (5' 3 ) 05/17/2023 7:34 AM EST Body Mass Index 21.43 05/17/2023 7:34 AM EST Plan of Treatment Health Maintenance Due Date Last Done Comments COVID-19 Vaccine (#1) 1990 DTaP,Tdap,and Td Vaccines (1 - Tdap) 2004 Hepatitis B Vaccines (1 of 3 - 19+ 3-dose series) 2004 Pneumococcal Vaccine: Pediat rics (0 to 5 Years) and At-Risk Patients (6 to 64 Years) (1 of 2 - PCV) 2004 Cervical Cancer Screening: P ap Smear 2006 Depression Screening 04/13/2023 HIV Screening 04/13/2023 Social Influencers of Health Screening 04/13/2023 Influenza Vaccine (#1) 2023 Cholesterol Screening (Lipid Panel) 02/09/2028 02/08/2023 Hepatitis C Screening Completed 02/08/2023 HIB Vaccines Aged Out No longer eligi ble based on patient's age to complete this topic HPV Vaccines Aged Out No longer eligi ble based on patient's age to complete this topic Hepatitis A Vaccines Aged Out No long er eligible based on patient's age to complete this topic IPV Vaccines Aged Out No longer eligi ble based on patient's age to complete this topic MMR Vaccines Aged Out No longer eligi ble based on patient's age to complete this topic Meningococcal ACWY Vaccine Aged Out N o longer eligible based on patient's age to complete this topic Meningococcal B Vacine Aged Out No lo nger eligible based on patient's age to complete this topic RSV Immunization Patients Un darius 20 months Aged Out No longer eligible b ased on patient's age to complete this topic Varicella Vaccines Aged Out No longer eligible based on patient's age to complete this topic Procedures Procedure Name Priority Date/Time Associated Diagnosis Comments HEPATITIS C SCREENING Routine 02/08/2023 LIPID PANEL Routine 02/08/2023 from Last 3 Months or Most Recently Relevant to Health Maintenance Results * Hm Hepatitis C Screening (02/08/2023) Hepatitis C Screening abstracted Historical Provider HEALTH MAINTENANCE Final Result * (ABNORMAL) Lipid panel (02/08/2023) LDL/HDL Ratio 3 0 - 4 Triglycerides 84 0 - 150 mg/dL Cholesterol 261(A) 0 - 200 mg/dL HDL 86 >=40 mg/dL LDL Cholesterol 159(A) 0 - 100 mg/dL Blood Venous blood specimen / Unknown us Historical Provider LAB BLOOD ORDERABLES Janet l Result from Last 3 Months or Most Recently Relevant to Health Maintenance Care Teams Child Care Center Assistant Director Relationship Specialty Start Date End Date Wade Randall MD [address] [place] [address] PCP - General 03/03/23
--- OUTSIDE RECORDS SUMMARY | 2024-05-21 15:37 | XMS_ITS | Clinical Summary ---
Author Organization [employer] Address [address] [facility] [address] [place] [address] Care Team Providers Care Preventive Medicine Specialist Name Role Phone Unavailable Primary Care Provider Unavailabl e Social History Tobacco Use Types Packs/Day Years Used Date Smoking Tobacco: Never Assessed Comments Unknown Sex and Gender Information Value Date Recorded Sex Assigned at Not on file Legal Sex Female 11:50 AM EDT Gender Identity Not on file Sexual Orientation Not on file Plan of Treatment Health Maintenance Due Date Last Done Comments Depression Screening 1985 HIV Screening 1985 SDOH Screening 1985 Alcohol/Substance Use Screening 1997 Tobacco Screening 1997 Family Planning (PISQ) 2000 Hepatitis C Screening 06/29/2003 DTaP/Tdap/Td Vaccines (1 - Tdap) 2004 Hepatitis B Vaccines (1 of 3 - 19+ 3-dose series) 2004 Pap Smear 2006 Cervical Cancer Screening 06/29/2015 HPV/Cotest 06/29/2015 COVID-19 Vaccine (1 - 2023-2 5 season) 2023 Influenza Vaccine (#1) 2023 Zoster Vaccines (1 of 2) 06/29/2035 RSV Patients and Pa tients Aged 60 years or older (1 - 1-dose 75+ series) 2060 HIB Vaccines Aged Out No longer eligi [...] patient's age to complete this topic Meningococcal Vaccine Aged Out No pito liz eligible based on patient's age to complete this topic Pneumococcal Vaccine: Pediat rics (0 to 5 Years) and At-Risk Patients (6 to 49) Years) Aged Out No longer eligible b ased on patient's age to complete this topic RSV under 20 months Aged Out No longe r eligible based on patient's age to complete this topic Rotavirus Vaccines Aged Out No longer eligible based on patient's age to complete this topic Insurance [facility] [address] C[address]
--- OUTSIDE RECORDS SUMMARY | 2024-05-21 15:37 | XMS_ITS | Encounter Summary ---
Author Organization [facility] Address [address] [place] [address] Care Team Providers Care Package Sorter Name Role Phone Abi Gómez DO Primary Care Provider [phone] Reason for Visit * Reason Onset Date Comments PAC RX Refill 10/20/2023 Encounter Details Date Type Department Care Team (Late st Contact Info) Description 10/20/2023 Telephone [facility] [address] [place] [id number] Telephone Intake, Staff PAC RX Refill Social History Tobacco Use Types Packs/Day Years Used Date Smoking Tobacco: Never Passive Smoke Exposure: Past Smokeless Tobacco: Never Alcohol Use Standard Drinks/Week Comments Not Currently 0 (1 standard drink = 0.6 oz pur e alcohol) 15 years ago [facility] Utilities Answer Date Recorded In the past 12 months has [employer], gas, oil, or water [employer] threatened to shut off services in your [...] AM EDT documented as of this encounter Miscellaneous Notes * Telephone Encounter - Brenda Vallejo LPN - 10/24/2023 3:00 PM EDT Rx sent on 09/15/2023 w3 refills Pharmacy confirmed new rx was received and picked up on 10/21/2023, has refills remaining. * Telephone Encounter - Neva Pisano - 10/20/2023 8:41 AM EDT Patient calling - she is a patient of Dr. Treadwell. She is trying to have her Savella refilled but the pharmacy is telling her this prescription has been and the [facility] pharmacy needs a new one. Thank you - pac documented in this encounter Plan of Treatment Upcoming Encounters Date Type Department Care Team (Late st Contact Info) Description 06/11/2024 3:00 PM EDT Follow-Up [facility] [address] [place] [id number] [facility] Office Supervisor: Lexus Hood NP [address] [place] [address] 06/27/2024 11:30 AM EDT Social Work [facility] [address] [place] [address] Monica Hurst LICSW [address] [place] [address] 08/01/2024 11:15 AM EDT Telehealth [facility] [address] [place] [address] Abi Gómez DO [address] [place] [address] 08/28/2024 11:40 AM EDT Follow-Up [facility] [address] [place] [address] [facility] Office Supervisor: Sohail Magana MD [address] [place] [phone] documented as of this encounter Visit Diagnoses Not on filedocumented in this encounter Care Teams Package Sorter Relationship Specialty Start Date End Date Abi Gómez DO [address] [place] [id number] PCP - General Internal Medicine 04/29/24 documented as of this encounter
--- OUTSIDE RECORDS SUMMARY | 2024-05-21 15:37 | XMS_ITS | Clinical Summary ---
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 migrans is apparent. Blood Structure of peripheral vein / Unknown Venipuncture / Unknown 04/29/2024 11:01 AM EST 04/29/2024 11:09 AM EST Narrative [facility] - 04/29/2024 10:31 PM EST [facility] Received Date: Abi Gómez DO LAB BLOOD ORDERABLES Janet Result [facility] [address] [facility] [address] Floor, [place] [address], [email or web address] [facility] [address] [facility] 3rd Floor, [place] [address], * Hepatitis B surface antibody (04/29/2024 11:01 AM EST) Hepatitis B Surface Ab Immunity, Qn >1000 > OR = 10 mIU/mL 04/29/2024 7:59 PM EST [employer] [facility] Comment: PATIENT HAS IMMUNITY TO HEPATITIS B VIRUS. For additional information, please refer to http://education.[employer]/faq/FSW616 (This link is being provided for informational/ educational purposes only). Blood Structure of peripheral vein / Unknown Venipuncture / Unknown 04/29/2024 11:01 AM EST 04/29/2024 11:09 AM EST Narrative NANCY FREEMAN - 04/29/2024 7:59 PM EST [facility] Received Date: Abi Gómez DO LAB BLOOD ORDERABLES Janet jaime Result NANCY EDISON [address] [facility] [address], [place] [address], [employer] [facility] [address], [place] [address], * Varicella zoster antibody, IgG (04/29/2024 11:01 AM EST) Varicella Zoster Virus Antibody 10.50 S/CO 04/29/2024 10:38 PM EST [facility] Comment: ?Signal to Cut-off ? S/CO ?Interpretation ? --------- ?<1.00 ?Negative - Antibody not detected ?> or = 1.00 ?Positive - Antibody detected ?A positive result indicates that the patient ?has antibody to VZV but does not differentiate ?between an active or past infection. ?The clinical diagnosis must be interpreted in ?conjunction with the clinical signs and symptoms of ?the patient. This assay reliably measures immunity ?due to previous infection but may not be ?sensitive enough to detect antibodies induced by ?vaccination. Thus, a negative result in a vaccinated ?individual does not necessarily indicate ?susceptibility to VZV infection. A more sensitive ?test for vaccination-induced immunity is Varicella ?Zoster Virus Antibody Immunity Screen, ACIF. Blood Structure of peripheral vein / Unknown Venipuncture / Unknown 04/29/2024 11:01 AM EST 04/29/2024 11:09 AM EST Narrative [facility] - 04/29/2024 10:38 PM EST [facility] Received Date: Abi Gómez DO LAB BLOOD ORDERABLES Janet l Result Performing Organization Address City/State/[facility] Co de Phone Number NANCY EDISON [address] [facility] [address], [place] [address], [email or web address] [facility] [address] [facility] 3rd Floor, [place] [address], [place] [phone] * T4, Free (04/29/2024 11:01 AM EST) Free T4 1.38 0.93 - 1.70 ng/dL 04/29/2024 2:33 PM EST [facility] Comment: Females: (ng/dL) First Trimester ? 0.95-1.58 ng/dL Second Trimester ?0.76-1.24 ng/dL Third Trimester ? 0.70-1.25 ng/dL Dietary supplements containing biotin may interfere in assays and may skew analyte results to be falsely high. ?? For patients receiving the recommended daily doses of biotin, draw samples at least 8 hours following the last biotin supplementation. ?? For patients on maria r-doses of biotin supplements, draw samples at least 72 hours following the last biotin supplementation. Blood Structure of peripheral vein / Unknown Venipuncture / Unknown 04/29/2024 11:01 AM EST 04/29/2024 11:10 AM EST us Abi Gómez DO LAB BLOOD ORDERABLES Janet l Result [facility] [address] [place] [address], * Lipase (04/29/2024 11:01 AM EST) Pathologist [facility] Lipase 35 13 - 60 U/L 04/29/2024 11:57 AM EST [facility] Blood Structure of peripheral vein / Unknown Venipuncture / Unknown 04/29/2024 11:01 AM EST 04/29/2024 11:10 AM EST Abi Gómez DO LAB BLOOD ORDERABLES Janet l Result Performing Organization Address [facility] Co de Phone Number [facility] [address] [place] [address], * (ABNORMAL) Hemoglobin A1c (04/29/2024 11:01 AM EST) Pathologist [facility] Hemoglobin A1C 5.7(H) <5.7 % of total Hgb 04/29/2024 5:40 PM EST [facility] Comment: For someone without known diabetes, a hemoglobin A1c value between 5.7% and 6.4% is consistent with prediabetes and should be confirmed with a follow-up test. For someone with known diabetes, a value <7% indicates that their diabetes is well controlled. A1c targets should be individualized based on duration of diabetes, age, comorbid conditions, and other considerations. This assay result is consistent with an increased risk of diabetes. Currently, no consensus exists regarding use of hemoglobin A1c for diagnosis of diabetes for children. eAG (MG/DL) 117 mg/dL 04/29/2024 5:40 PM EST [facility] eAG (MMOL/L) 6.5 mmol/L 04/29/2024 5:40 PM EST [facility] Blood Structure of peripheral vein / Unknown Venipuncture / Unknown 04/29/2024 11:01 AM EST 04/29/2024 11:09 AM EST Narrative [facility] - 04/29/2024 5:40 PM EST [facility] Received Date: us Abi Gómez LAB BLOOD ORDERABLES Janet l Result [facility] [address], [place] [address], [place] [phone] [email or web address] [facility] [address], [place] [address], [place] [phone] * Folate (04/29/2024 11:01 AM EST) Pathologist [facility] Folate 23.8 4.8 - 24.2 ng/mL 04/29/2024 1:22 PM EST [facility] Blood Structure of peripheral vein / Unknown Venipuncture / Unknown 04/29/2024 11:01 AM EST 04/29/2024 11:10 AM EST us Abi Gómez LAB BLOOD ORDERABLES Janet l Result Performing Organization Address City/[facility]/ZIP Co de Phone Number [facility] [address] [place] [address], [place] * (ABNORMAL) Vitamin B12 (04/29/2024 11:01 AM EST) [facility] Vitamin B12 1,828(H) 232 - 1,245 pg/mL 04/29/2024 12:56 PM EST [facility] Blood Structure of peripheral vein / Unknown Venipuncture / Unknown 04/29/2024 11:01 AM EST 04/29/2024 11:10 AM EST Abi Gómez [employer] LAB BLOOD ORDERABLES Janet l Result [facility] [address] [place] [address], [place] * (ABNORMAL) Hepatic function panel (04/29/2024 11:01 AM EST) Pathologist [facility] Total Protein 7.5 6.0 - 8.0 g/dL 04/29/2024 12:00 PM EST [facility] Albumin 4.6 3.5 - 5.2 g/dL 04/29/2024 12:00 PM EST [facility] Globulin, Total 2.9 2.1 - 4.2 g/dL 04/29/2024 12:00 PM EST [facility] Bilirubin, Total <0.2(L) 0.2 - 1.2 mg/dL 04/29/2024 12:00 PM EST [facility] Bilirubin, Direct <0.1 <=0.4 mg/dL 04/29/2024 12:00 PM EST [facility] Alkaline Phosphatase 89 35 - 129 U/L 04/29/2024 12:00 PM EST [facility] AST 26 10 - 40 U/L 04/29/2024 12:00 PM EST [facility] ALT 17 10 - 40 U/L 04/29/2024 12:00 PM EST [facility] Bilirubin, Indirect 04/29/2024 12:00 PM EST [facility] Comment:Unable to calculate A/G Ratio 1.6 1.5 - 3.0 04/29/2024 12:00 PM EST [facility] Blood Structure of peripheral vein / Unknown Venipuncture / Unknown 04/29/2024 11:01 AM EST 04/29/2024 11:10 AM EST us Abi Gómez DO LAB BLOOD ORDERABLES Janet sandoval Result [facility] [address] [place] [address], * Basic metabolic panel (04/29/2024 11:01 AM EST) Pathologist [facility] NA 143 135 - 145 mmol/L 04/29/2024 11:57 AM EST [facility] K 4.4 3.5 - 5.3 mmol/L 04/29/2024 11:57 AM EST [facility] Cl 105 98 - 107 mmol/L 04/29/2024 11:57 AM EST [facility] CO2 29 22 - 32 mmol/L 04/29/2024 11:57 AM EST [facility] BUN 14 7 - 23 mg/dL 04/29/2024 11:57 AM EST [facility] Creatinine 0.82 0.50 - 1.20 mg/dL 04/29/2024 11:57 AM EST [facility] Glucose 89 65 - 99 mg/dL 04/29/2024 11:57 AM EST [facility] Calcium 9.5 8.6 - 10.5 mg/dL 04/29/2024 11:57 AM EST [facility] Anion Gap 9 5 - 15 04/29/2024 11:57 AM EST [facility] eGFR >90 >=60 mL/min/1. 73m2 04/29/2024 11:57 AM EST [facility] Comment:The estimated glomer ular filtration rate (eGFR) is calculated using a new formula developed by the NKF-ASN task force to eliminate race-based correction factors. The new formula uses serum/plasma creatinine, age, and gender to determine eGFR. A value below 60mls/min might indicate kidney disease and will be flagged. For additional information, see Schrader et al, Am J Kidney Dis. 2021;79(2):268- 288, A Unifying Approach for GFR estimation: Recommendations of the NKF-ASN Task Force on Reassessing the Inclusion of Race in Diagnosing Kidney Disease . Blood Structure of peripheral vein / Unknown Venipuncture / Unknown 04/29/2024 11:01 AM EST 04/29/2024 11:10 AM EST us Abi Gómez DO LAB BLOOD ORDERABLES Janet l Result [facility] [address] [place] [address], [place] * US Pelvis, Scanned Result (04/05/2024) Anatomical Region Laterality Modality Other 04/05/2024 us [facility] AMB EXTERNAL RESULT PROCEDURE S Final Result * EKG, Outside Results (04/05/2024) Anatomical Region Laterality Modality Other 04/05/2024 us [facility] AMB EXTERNAL RESULT PROCEDURE S Final Result * CT Abdomen, Outside Result (04/05/2024) Anatomical Region Laterality Modality Other 04/05/2024 us [facility] AMB EXTERNAL RESULT PROCEDURE S Final Result * LAB - SCANNED (04/05/2024) us [facility] LAB HISTORICAL RESULTS Final Result from Last [address] [place] [address] [place] [address] MEDICAID Advance Directives Documents on File Type Date Recorded Patient Extractor Puller Expl anatmission hospital Health Care Proxy 06/06/2023 6:10 PM 06-05 * Full Code (Latest Code Status on File) Date Activated Date Inactivated Comments 06/02/2023 11:37 PM 06/07/2023 10:48 PM Healthcare Agents on File Name Relationship Healthcare Agent Relationship Communication Liana Brenner Sister Rowan Hea [facility] Care Agent Blaine Mancilla [facility] Care Agen t Care Teams Press Tender Star Signal Relationship Specialty Start Date End Date Abi Gómez DO [address] [place] [phone] PCP - General Internal Medicine 04/29/24
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
--- OUTSIDE RECORDS SUMMARY | 2024-05-21 15:37 | XMS_ITS | Encounter Summary ---
Author Organization [facility] Address [address] [place] [address] Care Team Providers Care Processes Chemical Design Engineer Name Role Phone Abi Gómez DO Primary Care Provider [phone] Encounter Details Date Type Department Care Team (Late st Contact Info) Description 05/07/2024 Concept Inboxt Message [facility] [address] [place] [address] Lona Yuan [place] APPT 08/01 Social History Tobacco Use Types Packs/Day Years Used Date Smoking Tobacco: Never Passive Smoke Exposure: Past Smokeless Tobacco: Never Alcohol Use Standard Drinks/Week Comments Not Currently 0 (1 standard drink = 0.6 oz pur e alcohol) 15 years ago [facility] Utilities Answer Date Recorded In the past 12 months has [employer] electric, gas, oil, or water company threatened [...] Info) Description 06/11/2024 3:00 PM EDT Follow-Up [facility] [address] [place] [address] Financial Institution Manager: Lexus Hood NP [address] [place] [address] 06/27/2024 11:30 AM EDT Social Work [facility] [address] [place] [address] Monica Hurst LICSW [address] [place] [address] 08/01/2024 11:15 AM EDT Telehealth [facility] [address] [place] [address] Abi Gómez DO [address] [place] [address] 08/28/2024 11:40 AM EDT Follow-Up [facility] [address] [place] [address] Financial Institution Manager: Sohail Magana MD [address] [place] [address] documented as of this encounter Visit Diagnoses Not on filedocumented in this encounter Care Teams Processes Chemical Design Engineer Relationship Specialty Start Date End Date Abi Gómez DO [address] [place] [address] PCP - General Internal Medicine 04/29/24 documented as of this encounter
--- OUTSIDE RECORDS SUMMARY | 2024-05-21 15:37 | XMS_ITS | Encounter Summary ---
Author Organization [facility] Address [address] [place] [address] Care Team Providers Care Dinkey Locomotive Engineer Name Role Phone Abi Gómez DO Primary Care Provider [phone] Encounter Details Date Type Department Care Team (Late st Contact Info) Description 03/01/2024 Telephone [facility] [address] [place] [address] Monica Hurst, DOCUMENT REVIEW ATTORNEY [address] [place] [address] Social History Tobacco Use Types Packs/Day Years Used Date Smoking Tobacco: Never Passive Smoke Exposure: Past Smokeless Tobacco: Never Alcohol Use Standard Drinks/Week Comments Not Currently 0 (1 standard drink = 0.6 oz pur e alcohol) 15 years ago [facility] Utilities Answer Date Recorded In the past 12 months has [employer], gas, oil, or water [employer] threatened to shut off services in your [...] encounter Miscellaneous Notes * Telephone Encounter - Stacie Villalba - 05/09/2024 3:31 PM EST These rides were approved under her new address. I let patient know and told her she has to call [employer] to permanently change her address with them. * Telephone Encounter - Stacie Villalba - 05/03/2024 2:21 PM EST I updated her address on these 2 ride requests-but to change it for good on the [employer] website-she has to call [employer]-I can let her know. These requests are pendin rides per month to [address] [place] [address]-Tracking# [id number] 6 rides per month to [address] [place] [address]-Tracking# [id number] * Telephone Encounter - TAMAR Potts - 05/03/2024 1:50 PM EST Please update these Pt1s to her current address of: [address] [place] [address] * Telephone Encounter - TAMAR Potts - 03/01/2024 4:40 PM EST Please submit two Pt1s for cab transport to: [address] Address on file is correct. She has been unable to find service in her area. She is ambulatory and attends visits alone. Thank you Monica/AMANDA documented in this encounter Plan of Treatment Upcoming Encounters Date Type Department Care Team ([facility] st Contact Info) Description 06/11/2024 3:00 PM EDT Follow-Up [facility] [address] [place] [phone] Marble Cleaner: Lexus Hood NP [address] [place] [phone] 06/27/2024 11:30 AM EDT Social Work [facility] [address] [place] [phone] Monica Hurst LICSW [address] [place] [phone] 08/01/2024 11:15 AM EDT Telehealth [facility] [address] [place] [phone] Abi Gómez DO [address] [place] [phone] 08/28/2024 11:40 AM EDT Follow-Up [facility] [address] [place] [address] Marble Cleaner: Sohail Magana MD [address] [place] [address] documented as of this encounter Visit Diagnoses Not on filedocumented in this encounter Care Teams Dinkey Locomotive Engineer Relationship Specialty Start Date End Date Abi Gómez DO [address] [place] [phone] PCP - General Internal Medicine 04/29/24 documented as of this encounter
--- OUTSIDE RECORDS SUMMARY | 2024-05-21 15:37 | XMS_ITS | Encounter Summary ---
Author Organization [facility] Address [address] [place] [address] Care Team Providers Care Local Area Network Administrator Name Role Phone Abi Gómez DO Primary Care Provider [phone] Encounter Details Date Type Department Care Team (Late st Contact Info) Description 05/07/2024 Telephone [facility] [address] [place] [address] Abi Gómez DO [address] [place], [place] [id number] Social History Tobacco Use Types Packs/Day Years Used Date Smoking Tobacco: Never Passive Smoke Exposure: Past Smokeless Tobacco: Never Alcohol Use Standard Drinks/Week Comments Not Currently 0 (1 standard drink = 0.6 oz pur e alcohol) 15 years ago [facility] Utilities Answer Date Recorded In the past 12 months has [employer], gas, oil, or water [employer] threatened to shut off services in your [...] encounter Miscellaneous Notes * Telephone Encounter - Abi Gómez DO - 05/07/2024 12:47 PM EST Received records from [facility] emergency department. Patient was seen 04/05/2024. She was seen for 30 of nausea, vomiting, diarrhea and subjective fever. Labs obtained: UA showing slight bacteria. CBC normal, LFTs normal. Pelvic US showing ;Normal left ovary, no evidence of torsion. Surgically absent uterus and right ovary. CT obtained showing: Nonspecific trace fluid in the pelvis, favored to be physiologic. Dilated IVC and hepatic veins could be related to patient's hepatic status. She received morphine and was discharged home documented in this encounter Plan of Treatment Upcoming Encounters Date Type Department Care Team (Late st Contact Info) Description 06/11/2024 3:00 PM EDT Follow-Up [facility] [address] [place] [phone] Motor Scooter Repairer: Lexus Hood NP [address] [place] [phone] 06/27/2024 11:30 AM EDT Social Work [facility] [address] [place] [phone] Monica Hurst LICSW [address] [place] [phone] 08/01/2024 11:15 AM EDT Telehealth [facility] [address] [place] [address] Abi Gómez DO [address] [place] [address] 08/28/2024 11:40 AM EDT Follow-Up [facility] [address] [place] [address] Motor Scooter Repairer: Sohail Magana MD [address] [place] [phone] documented as of this encounter Visit Diagnoses Not on filedocumented in this encounter Care Teams Local Area Network Administrator Relationship Specialty Start Date End Date Abi Gómez DO [address] [place] [phone] PCP - General Internal Medicine 04/29/24 documented as of this encounter
--- OUTSIDE RECORDS SUMMARY | 2024-05-21 15:37 | XMS_ITS | Encounter Summary ---
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 [address], [employer] [address], [place] [address], [place] [phone] * Hepatitis C Antibody w/Reflex to HCV RNA, Quantitative PCR (04/29/2024 11:01 AM EST) Hepatitis C Antibody NON-REACT [place] NON-REACT [place]VIL[place] 04/29/2024 7:02 PM EST [employer] [facility] Comment: HCV antibody was non-reactive. There is no laboratory evidence of HCV infection. In most cases, no further action is required. However, if recent HCV exposure is suspected, a test for HCV RNA (test code 34445) is suggested. For additional information please refer to http://education.[employer]/faq/PEZ71a9 (This link is being provided for informational/ educational purposes only.) Blood Structure of peripheral vein / Unknown Venipuncture / Unknown 04/29/2024 11:01 AM EST 04/29/2024 11:10 AM EST Narrative [facility] - 04/29/2024 7:02 PM EST [facility] Received Date: Abi Gómez DO LAB BLOOD ORDERABLES Janet l Result NANCY [facility], [place] [address], [place] [phone] [employer] [facility] [address], [place] [address], documented in this encounter Visit Diagnoses Diagnosis Need for hepatitis C screening test- Primary Special screening examination for other specified viral diseases Encounter for screening for HIV Mixed hyperlipidemia Fibromyalgia Unspecified myalgia and myositis Gastroesophageal reflux disease without esophagitis Esophageal reflux PTSD (post-traumatic stress disorder) Posttraumatic stress disorder Endometriosis Endometriosis, site unspecified Dysphagia, unspecified type Anxiety and depression General medical exam Unspecified general medical examination Concern about memory Nausea and vomiting, unspecified vomiting type Other migraine without status migrainosus, not intractable Marijuana use documented in this encounter Care Teams Independent Agent Music Education Relationship Specialty Start Date End Date Abi Gómez DO [address] [place] [address] PCP - General Internal Medicine 04/29/24 documented as of this encounter
--- OUTSIDE RECORDS SUMMARY | 2024-05-21 15:37 | XMS_ITS | Encounter Summary ---
Author Organization [facility] Address [address] [place] [address] Care Team Providers Care Coal Shoveler Name Role Phone Abi Gómez DO Primary Care Provider [phone] Encounter Details Date Type Department Care Team (Late st Contact Info) Description 05/03/2024 myChart Message [facility] [address] [place] [address] Monica Hurst, CHENILLE MACHINE OPERATOR [address] [place] [address] direct reply to Monica Social History Tobacco Use Types Packs/Day Years Used Date Smoking Tobacco: Never Passive Smoke Exposure: Past Smokeless Tobacco: Never Alcohol Use Standard Drinks/Week Comments Not Currently 0 (1 standard drink = 0.6 oz pur e alcohol) 15 years ago [facility] Utilities Answer Date Recorded In the past 12 months has e [employer], gas, oil, or water [employer] threatened to shut off services in your [...] Info) Description 06/11/2024 3:00 PM EDT Follow-Up [facility] G[facility]ology [facility] [address] [place] [address] Rn Peritoneal Dialysis: Lexus Hood NP [address] [place] [address] 06/27/2024 11:30 AM EDT Social Work [facility] [address] [place] [address] Monica Hurst LICSW [address] [place] [address] 08/01/2024 11:15 AM EDT Telehealth [facility] [address] [place] [address] Abi Gómez DO [address] [place] [address] 08/28/2024 11:40 AM EDT Follow-Up [facility] Rhe[facility]ology [facility] [address] [place] [address] Rn Peritoneal Dialysis: Sohail Magana MD [address] [place] [address] documented as of this encounter Visit Diagnoses Not on filedocumented in this encounter Care Teams Coal Shoveler Relationship Specialty Start Date End Date Abi Gómez DO [address] [place] [address] PCP - General Internal Medicine 04/29/24 documented as of this encounter
--- OUTSIDE RECORDS SUMMARY | 2024-05-21 15:37 | XMS_ITS | Encounter Summary ---
Author Organization [facility] Address [address] [place] [address] Care Team Providers Care Pot Puller Name Role Phone Abi Gómez DO Primary Care Provider [phone] Encounter Details Date Type Department Care Team (Late st Contact Info) Description 05/09/2024 CEED Tech Message [facility] [address] [place] [address] [employer], Generic Provider [address] [place] [address] PT-1 rides Social History Tobacco Use Types Packs/Day Years Used Date Smoking Tobacco: Never Passive Smoke Exposure: Past Smokeless Tobacco: Never Alcohol Use Standard Drinks/Week Comments Not Currently 0 (1 standard drink = 0.6 oz pur e alcohol) 15 years ago [facility] Utilities Answer Date Recorded In the past 12 months has e [employer], gas, oil, or water [employer] threatened to shut off services in your [...] Info) Description 06/11/2024 3:00 PM EDT Follow-Up [facility] [address] [place] [address] Sewing Machine Repairer: Lexus Hood NP [address] [place] [address] 06/27/2024 11:30 AM EDT Social Work [facility] [address] [place] [address] Monica Hurst LICSW [address] [place] [address] 08/01/2024 11:15 AM EDT Telehealth [facility] [address] [place] [address] Abi Gómez DO [address] [place] [address] 08/28/2024 11:40 AM EDT Follow-Up [facility] [address] [place] [address] Sewing Machine Repairer: Sohail Magana MD [address] [place] [address] documented as of this encounter Visit Diagnoses Not on filedocumented in this encounter Care Teams Pot Puller Relationship Specialty Start Date End Date Abi Gómez DO [address] [place] [address] PCP - General Internal Medicine 04/29/24 documented as of this encounter
--- OUTSIDE RECORDS SUMMARY | 2024-05-21 15:37 | XMS_ITS | Referral Summary ---
Author Organization [facility] Address [address] [place] [address] Care Team Providers Care Sports Medicine Coordinator Name Role Phone Abi Gómez DO Primary Care Provider [phone] Encounters Date Type Department Care Team Description 05/09/2024 myChart Message [facility] [address] [place] [address] 60854 Jesust, Generic Provider PT-1 rides 05/07/2024 Telephone [facility] [address] [place] [address] 45496 Abi Gómez, 05/07/2024 myChart Message [facility] [address] [place] [address] 93665 Lona Yuan MA APPT 08/0105/03/2024 myChart Message [facility] [address] [place] [address] 87239 Monica [place] LICSW direct reply to Monica 05/03/2024 1:00 PM EST Social Work [facility] [address] [place] [address] [phone] Monica [place] LICSW PTSD (post-traumatic stress disorder) (Primary Dx); Anxiety and depression 04/29/2024 Telephone [facility] [address] [place] [address] 56262 Abi Gómez DO 04/29/2024 9:30 AM EST Office Visit [facility] [address] [place] [address] 88916 Abi Gómez DO Need for hepatitis C screening test (Primary Dx); Encounter for screening for HIV; Mixed hyperlipidemia; Fibromyalgia; Gastroesophageal reflux disease without esophagitis; PTSD (post-traumatic stress disorder); Endometriosis; Dysphagia, unspecified type; Anxiety and depression; General medical exam; Concern about memory; Nausea and vomiting, unspecified vomiting type; Other migraine without status migrainosus, not intractable; Marijuana use 04/20/2024 Refill [facility] [address] [place] [address] 15992 Era Rivera PA 04/07/2024 Refill [facility] [address] [place] [address] 18282 Era Rivera PA 04/07/2024 Refill [facility] to Primary Care [address] [place] [address] [phone] Mustapha Russell MD Fibromyalgia 03/18/2024 1:00 PM EST Office Visit [facility] [address] [place] [phone] Client Partner: Matt Rouse NP Fibromyalgia (Primary Dx) 03/11/2024 Refill [facility] [address] [place] [address] 96464 Client Partner: Sohail Magana MD 03/10/2024 Refill [facility] [address] [place] [address] [phone] Deb Day NP Endometriosis 03/10/2024 Refill [facility] [address] [place] [address] Client Partner: Sohail Magana MD 03/01/2024 Telephone [facility] [address] [place] [address] Monica [place] BEE FARMER 02/29/2024 myChart Message [facility] [address] [place] [address] Monica [place], BEE FARMER your two prescriptions 02/29/2024 Telephone [facility] [address] [place] [address] 98310 Monica [place], BEE FARMER 02/29/2024 1:30 PM EST Social Work [facility] [address] [place] [address] 14335 Monica [place], BEE FARMER PTSD (post-traumatic stress disorder) (Primary Dx); Anxiety and depression from Last 3 Months Allergies Active Allergy Reactions Criticality Noted Date [...] 1 tablet by mouth daily as needed. Active hydrOXYzine HCL (ATARAX) 25 mg tablet Take 1 tablet (25 mg total) by mouth daily as needed for itching. 30 tablet 1 Active Ajovy Autoinjector 225 mg/1.5 mL auto-injector 225 MG (1.5 ML) SUBCUTANEOUSLY ONCE FOR 30 DAYS ADMINISTER 225MG SC Q MONTH Active ondansetron (ZOFRAN) 4 mg tablet SMARTSI [...] MOUTH ONCE A DAY. 60 tablet 1 Active SUMAtriptan (IMITREX) 100 mg tablet 100 mg. Active diclofenac (CATAFLAM) 50 mg tablet 50 mg. Active norethindrone (AYGESTIN) 5 mg tablet 5 mg. Active meloxicam (MOBIC) 15 mg tabletIndicatio ns:Endometriosi [...] NA PAP SMEAR: s/p hysterectomy, will request MONITORING AND EVALUATION ADVISOR records. MAMMOGRAM: NA BONE DENSITY: NA HCP: reviewed Orders: Tdap vaccine greater than or equal to 7yo IM Hepatitis B surface antibody; Future Varicella zoster antibody, IgG; Future Influenza trivalent, PF (AFLURIA/FLULAVAL/FLUZONE/FLUARIX) vaccine 0.5 mL IM Migraine 04/29/2024 Assessment & Plan (04/29/2024 11:40 AM EST): Working with neurologist: Mitzi Mane, in [place] On various medications for this Gastroesophageal reflux [...] PRN Seen by Monica and referred to [facility] Pt says she is waiting [...] Plan (04/29/2024 11:40 AM EST): Follows with MONITORING AND EVALUATION ADVISOR: Matt Edmondson, in [place]. On lupron Assessment & Plan (11/28/2023 2:13 PM EDT): Chronic pain d/t cysts Followed by MONITORING AND EVALUATION ADVISOR Switch to meloxicam instead of ibuprofen d/t [...] to ovarian cysts/endometriosis. - Used to follow Deep Tissue Massage Therapist in [place] with Lupron Rx - CT A/p here showed - There are 2 left ovarian cystic structures measuring 1.5 and 1.7 cm, either follicles or endometriomas in the setting of endometriosis. - Will need referral to Deep Tissue Massage Therapist on discharge. Fibromyalgia 06/02/2023 Assessment & Plan (04/29/2024 11:40 AM EST): Following with rheumatology On pregabalin and sevella Has rx for diclofenac, meloxicam, and ibuprofen. Discussed these are all NSAIDs, shouldn't take them all. Will stop all but diclofenac. Check BMP Doing PT Also following with [facility]- gets injections Declines acupuncture [...] up with GI outpatient. Rheumatoid arthritis of [facility] sites with negative rheumatoid factor ([facility]) 06/02/202305/2023 Assessment & Plan (06/04/2023 5:04 PM EDT): Patient has a reported history of rheumatoid arthritis for years for which she was previously on hydroxychloroquine. Patient subsequently moved to [place] from [place] and is having considerable difficulties obtaining a new maintenance foreman. Reached out to Rheumatology, plan to schedule follow up in outpatient setting. -CRP 2.1 -c/w home hydroxychloroquine - Referral to Rheum on discharge Immunizations Immunization Administration Dates Next Due INFLUENZA, SPLIT VIRUS, TRIVALENT, PF 04/29/2024 Tetanus Toxoid, Reduced Diph theria Toxoid, and Acellular Pertussis Vaccine, Adsorbed 04/29/2024 Social History Tobacco Use Types Packs/Day Years Used Date Smoking Tobacco: Never Passive Smoke Exposure: Past Smokeless Tobacco: Never Tobacco Cessation:Counseling Given: Not Answered Alcohol Use Standard Drinks/Week Comments Not Currently 0 (1 standard drink = 0.6 oz pur e alcohol) 15 years ago [facility] Utilities Answer Date Recorded In the [...] 03/18/2024 12:[address] Respiratory Rate 07/28/2023 11:07 AM EDT Oxygen Saturation 99% 07/28/2023 11:07 AM EDT Inhaled Oxygen Concentration - - Weight 55.3 kg (122 lb) 04/29/2024 9:19 AM EST Height 161.3 cm (5' 3.5 ) 04/29/2024 9:19 AM EST Body Mass Index 21.27 04/29/2024 9:19 AM EST Plan of Treatment Upcoming Encounters Date Type Department Care Team (Late st Contact Info) Description 06/11/2024 3:00 PM EDT Follow-Up [facility] [address] [place] [address] Client Partner: Lexus Hood NP [address] [place] [address] 06/27/2024 11:30 AM EDT Social Work [facility] [address] [place] [address] 8[address] Monica [place] LICSW [address] [place] [address] 7[address] 08/01/2024 11:15 AM EDT Telehealth [facility] [address] [address] Abi Gómze DO [address] [place] [address] 08/28/2024 11:40 AM EDT Follow-Up [facility] [address] [place] [address] Client Partner: Sohail Magana MD [address] [place] [phone] Procedures * Due to [place] state law, this organization might not be [...] RPR (DIAGNOSIS) W/REFLEX TO TITER & TPPA [id number] Routine 04/29/2024 11:01 AM EST Concern about [...] Last 3 Months Results * Due to [place] state law, this organization might not be sharing negative HIV tests. * RPR (Diagnosis) w/Reflex to Titer & TPPA Confirm (04/29/2024 11:01 AM EST) RPR W/Refl Titer NON-REACT ORVILLE NON-REACT [place]VILLE 04/30/2024 12:00 PM EST [facility] Blood Structure of peripheral vein / Unknown Venipuncture / Unknown 04/29/2024 11:01 AM EST 04/29/2024 11:09 AM EST Narrative [employer] [facility] [facility] - 04/30/2024 12:00 PM EST [facility] Received Date: us Abi Gómez DO LAB BLOOD ORDERABLES Janet l Result [address] [facility], [place] [address], [place] [phone], [place] [address], [place] [phone] * (ABNORMAL) TSH Reflex Free T4 (04/29/2024 11:01 AM EST) TSH 0.275(L) 0.280 - 3.890 uIU/mL 04/29/2024 12:56 PM EST [facility] Comment: Females: 1st trimester ? 0.150-4.000 ??IU/mL 2nd trimester ?? 0.310-4.170 ?IU/mL 3rd trimester ?0.380-4.150 ?IU/mL Blood Structure of peripheral vein / Unknown Venipuncture / Unknown 04/29/2024 11:01 AM EST 04/29/2024 11:10 AM EST us Abi Gómez DO LAB BLOOD ORDERABLES Janet l Result [facility] [address] [place] [address], * (ABNORMAL) Lipid Panel w/Reflex to Direct LDL (04/29/2024 11:01 AM EST) Cholesterol 227(H) <=199 mg/dL 04/29/2024 11:57 AM EST [facility] Triglycerides 64 <=149 mg/dL 04/29/2024 11:57 AM EST [facility] Cholesterol, HDL 65(H) 40 - 59 mg/dL 04/29/2024 11:57 AM EST [facility] Cholesterol, Non-HDL 162 mg/dL 04/29/2024 11:57 AM EST [facility] LDL Cholesterol 149(H) <100 mg/dL 04/29/2024 11:57 AM EST [facility] VLDL 12.8 mg/dL 04/29/2024 11:57 AM [facility] Cholesterol/HDL Ratio 3.5 <5.0 04/29/2024 11:57 AM [facility] Blood Structure of peripheral vein / Unknown Venipuncture / Unknown 04/29/2024 11:01 AM EST 04/29/2024 11:10 AM EST [facility] - 04/29/2024 11:57 AM [...] DO LAB BLOOD ORDERABLES Janet sandoval Result [facility] [address] [place] [address], * CBC Auto Differential (04/29/2024 11:01 AM [...] - 400 10*3/uL 04/29/2024 11:15 AM EST [facility] MPV 10.0 7.5 - 12.5 fL 04/29/2024 11:15 AM EST [facility] Neutrophil % 50.0 % 04/29/2024 11:15 AM EST [facility] Immature Grans % 0.3 0.0 - 0.9 % 04/29/2024 11:15 AM EST [facility] Lymphocyte % 34.9 % 04/29/2024 11:15 AM EST [facility] Monocyte % 11.1 % 04/29/2024 11:15 AM EST [facility] Eosinophil % 2.7 % 04/29/2024 11:15 AM EST [facility] Basophil % 1.0 % 04/29/2024 11:15 AM EST [facility] Neutrophil # [...] - 0.95 10*3/uL 04/29/2024 11:15 AM EST [facility] Eosinophil # 0.20 0.02 - 0.50 10*3/uL 04/29/2024 11:15 AM EST [facility] Basophil # 0.10 0.00 - 0.20 10*3/uL 04/29/2024 11:15 AM EST [facility] nRBC % 0.0 /100 WBCs 04/29/2024 11:15 AM EST [facility] nRBC # <0.01 <0.01 10*3/uL 04/29/2024 11:15 AM EST [facility] Blood Structure of peripheral vein / Unknown Venipuncture / Unknown 04/29/2024 11:01 AM EST 04/29/2024 11:09 AM EST Abi Gómez LAB BLOOD ORDERABLES Janet l Result [facility] [address] [place] [address], [place] * Hepatitis C Antibody w/Reflex to HCV RNA, Quantitative PCR (04/29/2024 11:01 AM EST) Hepatitis C Antibody NON-REACT ORVILLE NON-REACT ORVILLE 04/29/2024 7:02 PM EST [facility] Comment: HCV antibody was non-reactive. There is no laboratory evidence of HCV infection. In most cases, no further action is required. However, if recent HCV exposure is suspected, a test for HCV RNA (test code 69281) is suggested. For additional information please refer to http://education.MicroCHIPS/faq/ZDX57o0 (This link is being provided for informational/ educational purposes only.) Blood Structure of peripheral vein / Unknown Venipuncture / Unknown 04/29/2024 11:01 AM EST 04/29/2024 11:10 AM EST Narrative [facility] - 04/29/2024 7:02 PM EST [facility] Received Date: us Abi Gómez LAB BLOOD ORDERABLES Janet l Result [facility] [address] [facility] 3rd [address], [place] [address], [place] [phone] E[facility] [address] [facility] 3rd Floor, [place] [address], [place] [phone] * Lyme Antibody Screen w/Reflex to Blot (04/29/2024 11:01 AM EST) Lyme Ab Screen <0.90 index 04/29/2024 10:31 PM EST [facility] Comment: ? Index ?Interpretation ? ----- ? [...] 11:01 AM EST 04/29/2024 11:09 AM EST [facility] - 04/29/2024 10:31 PM EST [facility] Received Date: us Abi Gómez DO LAB BLOOD ORDERABLES Janet sandoval Result [facility] [address] [place] [address] 3rd Floor, [place] [address], E[facility] [address], [place] [address], * Hepatitis B surface antibody (04/29/2024 11:01 AM EST) Hepatitis B Surface Ab Immunity, Qn >1000 > OR = 10 mIU/mL 04/29/2024 7:59 PM EST [facility] Comment: PATIENT HAS IMMUNITY TO HEPATITIS B VIRUS. For additional information, please refer to http://education.MicroCHIPS/faq/WMX073 (This link is being provided for informational/ educational purposes only). Blood Structure of peripheral vein / Unknown Venipuncture / Unknown 04/29/2024 11:01 AM EST 04/29/2024 11:09 AM EST Narrative [facility] - 04/29/2024 7:59 PM EST [facility] Received Date: Abi Gómez DO LAB BLOOD ORDERABLES Janet l Result [facility] [address] [facility] 3rd Floor, [place] [address], Eda[facility] [address], [place] [address], * Varicella zoster antibody, IgG (04/29/2024 11:01 AM EST) Varicella Zoster Virus Antibody 10.50 S/CO 04/29/2024 10:38 PM EST [facility] Comment: ?Signal to Cut-off ? S/CO ?Interpretation [...] AM EST 04/29/2024 11:09 AM EST Narrative [facility] - 04/29/2024 10:38 PM EST [facility] Received Date: Abi Gómez DO LAB BLOOD ORDERABLES Janet sandoval Result [facility] [address] [facility] 3rd Floor, [place] [address], E[facility] [address] [facility] 3rd Floor, [place] [address], [place] [phone] * T4, Free (04/29/2024 11:01 AM EST) Free T4 1.38 0.93 - 1.70 ng/dL 04/29/2024 2:33 PM EST [facility] Comment: Females: (ng/dL) First [...] ORDERABLES Janet l Result Performing Organization Address [facility] Co de Phone Number [facility] [address] [place] [address], * Lipase (04/29/2024 11:01 AM EST) Lipase 35 13 - 60 U/L 04/29/2024 11:57 AM EST [email or web address] Blood Structure of peripheral vein / Unknown Venipuncture / Unknown 04/29/2024 11:01 AM EST 04/29/2024 11:10 AM EST us Abi Gómez DO LAB BLOOD ORDERABLES Janet l Result Performing Organization Address [facility] Co de Phone Number [facility] [address] [place] [address], * (ABNORMAL) Hemoglobin A1c (04/29/2024 11:01 AM EST) Hemoglobin A1C 5.7(H) <5.7 % of total Hgb 04/29/2024 5:40 PM EST [facility] Comment: For someone without known diabetes, a [...] (MG/DL) 117 mg/dL 04/29/2024 5:40 PM EST E[facility] eAG (MMOL/L) 6.5 mmol/L 04/29/2024 5:40 PM EST [facility] Blood Structure of peripheral vein / Unknown Venipuncture / Unknown 04/29/2024 11:01 AM EST 04/29/2024 11:09 AM EST [facility] - 04/29/2024 5:40 PM EST [facility] Received Date: Abi Gómez LAB BLOOD ORDERABLES Janet l Result [facility] [address] [facility] [address] [facility], [place] [address], [place] [phone] [facility] [address], [place] [address], [place] [phone] * Folate (04/29/2024 11:01 AM EST) Folate 23.8 4.8 - 24.2 ng/mL 04/29/2024 1:22 PM EST [facility] Blood Structure of peripheral vein / Unknown Venipuncture / Unknown 04/29/2024 11:01 AM EST 04/29/2024 11:10 AM EST Abi Gómez [facility] LAB BLOOD ORDERABLES Janet l Result [facility] [address] [place] [address], * (ABNORMAL) Vitamin B12 (04/29/2024 11:01 AM EST) Vitamin B12 1,828(H) 232 - 1,245 pg/mL 04/29/2024 12:56 PM EST [facility] Blood Structure of peripheral vein / Unknown Venipuncture / Unknown 04/29/2024 11:01 AM EST 04/29/2024 11:10 AM EST Abi Gómez DO LAB BLOOD ORDERABLES Janet l Result [facility] [address] [place] [address], * (ABNORMAL) Hepatic function panel (04/29/2024 11:01 AM EST) Total Protein 7.5 6.0 - 8.0 g/dL 04/29/2024 12:00 PM EST [facility] Albumin 4.6 3.5 - 5.2 g/dL 04/29/2024 12:00 PM EST [facility] Globulin, Total 2.9 2.1 - 4.2 g/dL 04/29/2024 12:00 PM EST [facility] Bilirubin, Total <0.2(L) 0.2 - 1.2 mg/dL 04/29/2024 12:00 PM EST [facility] Bilirubin, Direct <0.1 <=0.4 mg/dL 04/29/2024 12:00 PM EST [facility] Alkaline Phosphatase 89 35 - 129 U/L 04/29/2024 12:00 PM EST [facility] AST 26 10 - 40 U/L 04/29/2024 12:00 PM EST [facility] ALT 17 10 - 40 U/L 04/29/2024 12:00 PM EST [facility] Bilirubin, Indirect 04/29/2024 12:00 PM EST [facility] Comment:Unable to calculate A/G Ratio 1.6 1.5 - 3.0 04/29/2024 12:00 PM EST [facility] Blood Structure of peripheral vein / Unknown Venipuncture / Unknown 04/29/2024 11:01 AM EST 04/29/2024 11:10 AM EST Abi Gómez DO LAB BLOOD ORDERABLES Janet sandoval Result [facility] [address] [place] [address], * Basic metabolic panel (04/29/2024 11:01 AM EST) NA 143 135 - 145 mmol/L 04/29/2024 11:57 AM EST [facility] K 4.4 3.5 - 5.3 mmol/L 04/29/2024 11:57 AM EST [facility] Cl 105 98 - 107 mmol/L 04/29/2024 11:57 AM EST [facility] CO2 29 22 - 32 mmol/L 04/29/2024 11:57 AM EST [facility] BUN 14 7 - 23 mg/dL 04/29/2024 11:57 AM EST [facility] Creatinine 0.82 0.50 - 1.20 mg/dL 04/29/2024 11:57 AM EST [facility] Glucose 89 65 - 99 mg/dL 04/29/2024 11:57 AM EST [facility] Calcium 9.5 8.6 - 10.5 mg/dL 04/29/2024 11:57 AM EST [facility] Anion Gap 9 5 - 15 04/29/2024 11:57 AM EST [facility] eGFR >90 >=60 mL/min/1. 73m2 04/29/2024 11:57 AM EST [facility] Comment:The estimated glomer ular [...] DO LAB BLOOD ORDERABLES Janet l Result [facility] [address] [place] [address], [place] * [place] Pelvis, Scanned Result (04/05/2024) [...] Final Result from Last 3 Months Insurance [place] Advance Directives Documents on File Type Date Recorded Patient Body Worker [facility] Proxy 06/06/2023 6:10 PM 06-05 * Full Code (Latest Code Status on File) Date Activated Date Inactivated Comments 06/02/2023 11:37 PM 06/07/2023 10:48 PM Healthcare Agents on File Name Relationship Healthcare Agent Relationship Communication Liana Brenner Sister [facility]ate [facility] Care Agent Blaine Mancilla [facility] Agen Care Teams Sports Medicine Coordinator Relationship Specialty Start Date End Date Abi Gómez DO [address] [place] [address] [phone] PCP - General Internal Medicine 04/29/24
--- OUTSIDE RECORDS SUMMARY | 2024-05-21 15:37 | XMS_ITS | Encounter Summary ---
Author Organization [facility] Address [address] [place] [address] Care Team Providers Care Mortar Maker Name Role Phone Abi Gómez DO Primary Care Provider [phone] Encounter Details Date Type Department Care Team (Late st Contact Info) Description 04/29/2024 Telephone [facility] [address] [place] [address] Abi Gómez DO [address] [place], [place] [phone] Social History Tobacco Use Types Packs/Day Years Used Date Smoking Tobacco: Never Passive Smoke Exposure: Past Smokeless Tobacco: Never Alcohol Use Standard Drinks/Week Comments Not Currently 0 (1 standard drink = 0.6 oz pur e alcohol) 15 years ago [facility] Utilities Answer Date Recorded In the past 12 months has [employer], gas, oil, or water [employer] threatened to shut off services in your [...] * Telephone Encounter - Stacie Villalba - 05/07/2024 10:08 AM EST Received notes from [facility] ED. * Telephone Encounter - Stacie Villalba - 04/30/2024 2:45 PM EST I have requested records from all 4 places-[facility], [facility] Pain Management, [facility] SURVEY TECHNICIAN -Dr. Edmondson and Dr. Mane. * Telephone Encounter - Abi Gómez DO - 04/29/2024 5:24 PM EST [facility] in * Telephone Encounter - Stacie Villalba - 04/29/2024 5:04 PM EST Do you know which ER she was seen at? [facility]? I will request the notes from all providers. * Telephone Encounter - Abi Gómez DO - 04/29/2024 10:37 AM EST Can you please request recent records from neurologist: Mitzi Mane, in [place]. AWAKE OVERNIGHT MONITOR: Matt Edmondson, in [place], and [facility] Behavior Pain Management- And records from ED visit on 04/05/24 Thanks documented in this encounter Plan of Treatment Upcoming Encounters Date Type Department Care Team (Late st Contact Info) Description 06/11/2024 3:00 PM EDT Follow-Up [facility] [address] [place] [phone] Diesel Service Technician: Lexus [place] NP [address] [place] [address] 06/27/2024 11:30 AM EDT Social Work [facility] [address] [place] [address] Monica [place] LICSW [address] [place] [address] 08/01/2024 11:15 AM EDT Telehealth [facility] [address] [place] [address] Abi Gómez DO [address] [place] [address] 08/28/2024 11:40 AM EDT Follow-Up [facility] [address] [place] [address] Diesel Service Technician: Sohail Magana MD [address] [place] [phone] documented as of this encounter Visit Diagnoses Not on filedocumented in this encounter Care Teams Mortar Maker Relationship Specialty Start Date End Date Abi Gómez DO [address] [place] [address] PCP - General Internal Medicine 04/29/24 documented as of this encounter
== END ==
LOC: HO.SL 12:35
PROVIDERS: PCP Student in an Organized Health Care Education/Training Program; Visit Provider Nurse Practitioner Family
DX: G47.9 Sleep disorder, unspecified (principal); R06.83 Snoring; R06.81 Apnea, not elsewhere classified; R53.83 Other fatigue; R51.9 Headache, unspecified
CPT/HCPCS: 95806

== ENCOUNTER → 2024-05-22 12:45 | Outpatient (BNV) | payer OTHER, SELFPAY | PROVIDERS: PCP Student in an Organized Health Care Education/Training Program; Visit Provider Internal Medicine | DX: R06.83 Snoring (principal); G47.10 Hypersomnia, unspecified | CPT/HCPCS: 95806 ==

== ENCOUNTER 2024-08-19 12:18 | Emergency (ER) | payer OTHER, SELFPAY ==
--- NOTE | ~2024-08-19 | US_ITS ---
EXAMINATION: US PELVIS CLINICAL INFORMATION: Left superior pubic pain. COMPARISON: 01/24/2023. TECHNIQUE: Ultrasound of the pelvis is performed using transabdominal transducer along with Doppler. Patient refused transvaginal imaging. FINDINGS: Uterus: Surgically absent. Adnexa: Right ovary is surgically absent. Left ovary could not be seen. There is no pelvic ascites or fluid collection. Right ovary: Surgically absent. Left ovary: Could not be visualized. US/US pelvic complete IMPRESSION: As per technologist note, Transabdominal examination is extremely limited due to bowel gas. The patient refused transvaginal imaging. 1. Uterus and right ovary are surgically absent. 2. There are left ovary could not be visualized. 3. There is no free pelvic fluid. Electronically signed by: Joshua Millard MD 08/19/2024 02:08 PM EDT
--- NOTE | ~2024-08-19 | CT_ITS ---
CLINICAL HISTORY: Abdominal pain, left lower quadrant, multiple prio CT abdomen and pelvis with contrast Comparison: None Findings: No consolidation or effusion. Unremarkable gallbladder. No biliary ductal dilatation. The liver, spleen, pancreas, adrenal glands and kidneys are unremarkable. No ureteral stones and no hydronephrosis or hydroureter. No bowel obstruction, pneumoperitoneum, or pneumatosis. Moderate stool in transverse and descending colon. No free fluid. No loculated fluid collection. Appendix is unremarkable. Uterus is absent. Urinary bladder only mildly filled and appears within normal limits. No aorta normal in size. The bones are intact. IMPRESSION: No acute findings. This document has been electronically signed by: Yana Urias MD on 08/19/2024 22:03:45
[2024-08-19 12:50] VITALS: BP 136/75; PULSE 75; RESP 18; TEMP 36.9; O2SAT 99; BMI 23.0
--- NOTE | 2024-08-19 12:51 | ED_ITS ---
HPI - Abdominal Pain General Chief Complaint: Abdominal Pain Stated Complaint: pain l side Time Seen by Provider: 08/19/24 17:05 Source: patient Mode of arrival: ambulatory Limitations: no limitations History of Present Illness ED Provider: HPI narrative: 39-year-old woman with history of endometriosis, multiple abdominal surgeries, history of hysterectomy and right-sided oophorectomy still has left ovary, presenting with worsening left lower quadrant pain for the past 1 week, in triage was ordered for ultrasound including transvaginal ultrasound which she states she could not tolerate due to discomfort. Some nausea some vomiting, stool as well. She felt like she is afebrile. No vaginal bleeding or discharge reported. MD elicited complaint: abdominal pain Related Data Home Medications ?Medication ?Instructions ?Recorded ?Confirmed albuterol sulfate 90 mcg/actuation 2 puff inhalation Q6H PRN cough 12/07/23 04/04/24 aerosol inhaler (Ventolin HFA) bupropion HCl 300 mg 24 hr tablet, 300 mg PO QAM 12/07/23 04/04/24 extended release hydroxyzine HCl 25 mg tablet 25 mg PO BEDTIME 12/07/23 04/04/24 meloxicam 15 mg tablet 15 mg PO DAILY 12/07/23 04/04/24 pantoprazole 40 mg tablet,delayed 40 mg PO BID 12/07/23 04/04/24 release pregabalin 200 mg capsule 200 mg PO BID 12/07/23 04/04/24 sennosides 8.6 mg tablet (Senna 8.6 mg PO DAILY 12/07/23 04/04/24 Laxative) Previous Rx's ?Medication ?Instructions ?Recorded cefuroxime axetil 250 mg tablet 250 mg PO BID 7 days #14 tabs 01/24/23 ketorolac 10 mg tablet 10 mg PO TID PRN pain 5 days #15 01/24/23 tabs rizatriptan 10 mg tablet 10 mg PO ONCE PRN migraine 12/07/23 headache 30 days #12 tabs ondansetron HCl 4 mg tablet 4 mg PO Q8H PRN nausea and 03/06/24 vomiting 30 days #20 tabs diclofenac potassium 50 mg tablet 50 mg PO BID PRN migraine headache 04/04/24 30 days #30 tabs metoclopramide HCl 5 mg tablet 5 - 10 mg (1 - 2 x 5 mg) PO Q4-6H 04/04/24 PRN nausea, vomiting, migraine 30 days #45 tabs mirtazapine 7.5 mg tablet 7.5 mg PO BEDTIME 30 days #30 tabs 04/04/24 sumatriptan succinate 100 mg tablet 50 - 100 mg (0.5 - 1 x 100 mg) PO 04/04/24 .COMPLEX PRN migraine headache 30 days #12 tabs sumatriptan succinate 100 mg tablet 100 mg PO Q2H PRN migraine 04/04/24 headache 30 days #12 tabs fremanezumab-vfrm 225 mg/1.5 mL 675 mg (4.5 mL) subcut ONCE 90 07/22/24 subcutaneous auto-injector (Ajovy) days #4.5 mL riboflavin (vitamin B2) 400 mg 400 mg PO DAILY 90 days #90 tabs 08/08/24 tablet ondansetron 4 mg disintegrating 4 mg PO Q8H PRN nausea and 08/19/24 tablet vomiting #4 tabs Allergies Allergy/AdvReac Type Severity Reaction Status Date / Time ciprofloxacin [From Cipro] Allergy Hives Verified 08/19/24 12:53 duloxetine [From Cymbalta] Allergy Shortness Verified 04/04/24 07:34 of Breath Review of Systems Constitutional: Reports as per [facility] Past Medical History Medical History Arthritis Constipation GERD (gastroesophageal reflux disease) Spondylosis Endometriosis Migraine PTSD (post-traumatic stress disorder) Anxiety and depression Fibromyalgia Family History Family History Father HTN (hypertension) CKD (chronic kidney disease) Mother HTN (hypertension) Diabetes Arthritis Schizophrenia Sister Diabetes Social History Social History Alcohol intake: never Patient Tobacco Use Status: Never used Tobacco Smoked in Last 30 Days: No Use of substances other than those prescribed or required for medical reasons: No Advance Directives: No Advance Directives Information Provided: No Patient : No Physical Exam ED Vital Signs: Vital Signs - 24 hr 08/19/24 12:50 08/19/24 17:05 08/19/24 18:00 Temperature 98.5 F 98.7 F 98.5 F Pulse Rate 75 64 72 Respiratory Rate 18 22 H 20 Blood Pressure 136/75 129/80 119/73 Pulse Oximetry 99 100 Oxygen Delivery Method Room Air Room Air 08/19/24 19:43 Temperature 98.5 F Pulse Rate 57 Respiratory Rate 18 Blood Pressure 107/63 Pulse Oximetry Oxygen Delivery Method BMI result Body Mass Index 23.0 Const Other: * Gen: ?Overall well-appearing patient * HEENT: PERRLA, EOMI, MMM, * Neck: Supple, no LAD * CV: RRR, no obvious murmurs appreciated * Resp: ?No wheezing rales rhonchi no stridor moving air well * Abd: ?Generalized tenderness, bowel sounds present, voluntary guarding * MSK: FROM, strength 5/5 all extremities * Skin: Warm, dry, intact, * Neuro: ?Alert and oriented x3, moving upper and lower extremities symmetrically, no obvious facial asymmetry noted Course Course Course Narrative: This is an RME: Additional HPI, ROS, PE not included below will be deferred to primary provider. RME assessment and note performed by: Melissa Dillon PA-C This is a 39 year old female who presents to the ER with concerns for LLQ pain x 1 week. Reports that she has had ovarian cysts for 10 years and believes that she is having an ovarian cyst now that is causing her to have this pain. She also reports that she has had nausea, vomiting and diarrhea. Reporting increased urination. Had hysterectomy. patient has tenderness palpation along the left suprapubic region. Plan: Labs, UA, ultrasound, further ER evaluation needed. Medical Decision Making Medical Decision Making [facility] Narrative: Patient's ultrasound was of poor quality due to bowel gas, we will obtain CT with oral contrast to evaluate for SBO, if there is any concern for ovarian torsion on the CT we will medicate and we will re-attempt to scan transvaginally for blood flow. 21:08 patient's care will be signed out to incoming provider i patient's CT scan of the abdomen is negative for acute findings will discharge patient home advised to follow with PCP Differential Diagnosis Differential Diagnoses: The differential diagnosis associated with the presentation includes Colitis, SBO, tubo-ovarian abscess, diverticulitis, ovarian torsion Admission/Observation Consideration of admission/observation: Escalation of care including admission/observation considered Lab Data [facility] Lab Attestation statement: I reviewed the patient's lab results. 08/19/24 14:17 08/19/24 14:17 Labs: Lab Results 08/19/24 08/19/24 Range/Units 14:17 16:54 WBC 7.9 (4.8-10.8) X10*3/uL RBC 4.36 (4.20-5.50) X10*6/uL Hgb 13.1 (12.0-16.0) g/dl Hct 38.2 (37.0-47.0) % MCV 87.6 (80.0-98.0) fL MCH 30.0 (27.0-33.0) pg MCHC 34.3 (31.0-35.0) g/dl RDW 13.9 (11.0-16.0) % Plt Count 339 (160-400) X10*3/uL MPV 9.3 L (9.4-12.3) fL Immature Gran % (Auto) 0.1 (0.0-0.4) % Neut % (Auto) 55.9 (45-73) % Lymph % (Auto) 27.2 (20-40) % [place] % (Auto) 10.9 (2-11) % Eos % (Auto) 4.9 H (0-4) % Baso % (Auto) 1.0 (0-2) % Lymph # (Auto) 2.1 (1.2-4.9) X10*3/uL [place] # (Auto) 0.9 (0.1-1.2) X10*3/uL Eos # (Auto) 0.4 (0.0-0.4) X10*3/uL Baso # (Auto) 0.1 (0.0-0.2) X10*3/uL Abs Immat Gran (auto) 0.01 (0.00-0.03) X10*3/uL Absolute Neuts (auto) 4.4 (2.0-8.3) x10*3/uL Absolute Nucleated RBC 0.000 (0.0-0.012) X10*3/uL Nucleated RBC % (auto) 0.0 (0.0-0.2) /100WBC Sodium 143 (135-145) mmol/L Potassium 4.5 (3.3-5.1) mmol/L Chloride 108 (96-108) mmol/L Carbon Dioxide 26 (22-29) mmol/L Anion Gap 14 (12-20) BUN 14 (9-16) mg/dL Creatinine 0.88 (0.5-1.4) mg/dL Estim Creat Clear Calc 71.0 Estimated GFR > 60 Random Glucose 79 (60-115) mg/dL Calcium 9.7 (8.4-10.2) mg/dL Total Bilirubin 0.2 (0.0-1.0) mg/dL Direct Bilirubin < 0.2 (0.0-0.5) mg/dL AST 27 (5-31) U/L ALT 28 (0-31) U/L Alkaline Phosphatase 94 (39-117) U/L Total Protein 7.6 (6.5-8.0) g/dL Albumin 4.9 (3.5-5.0) g/dL Lipase 28 (8-78) U/L Beta HCG, Quant < 2 mIU/mL Urine Color Dark Yellow Urine Appearance Clear Urine pH 5.5 (5.0-9.0) Ur Specific [place] 1.015 (1.005-1.025) Urine Protein Negative (Neg-Trace) mg/dL Urine Glucose (UA) Negative (Negative) mg/dL Urine Ketones 15 (Negative) mg/dL Urine Blood Moderate (2+) H (Negative) Urine Nitrite Negative (Negative) Ur Leukocyte Esterase Negative (Negative) Urine RBC 11-20 H (0-2) /HPF Urine WBC 0-5 (0-5) /HPF Ur Squamous Epith Cells 0-2 (0-2) /HPF Urine Bacteria None Seen (None Seen) Hyaline Casts 0-2 (0-2) /LPF Radiology Impression Discussion of test interpretation with radiology: I have reviewed the radiologist's reading. Radiologist Impression: US/US pelvic complete IMPRESSION: As per technologist note, Transabdominal examination is extremely limited due to bowel gas. The patient refused transvaginal imaging. 1. Uterus and right ovary are surgically absent. 2. There are left ovary could not be visualized. 3. There is no free pelvic fluid. Medications Administered Discontinued Medications Generic Name Dose Route Start Last Admin Trade Name Freq PRN Reason Stop Dose Admin Acetaminophen 975 mg 08/19/24 13:36 08/19/24 16:20 Acetaminophen 325 Mg Tablet PO 08/19/24 13:37 975 mg ONCE ONE Administration Diatrizoate Meglum/Diatrizoate Sod 30 ml 08/19/24 18:40 08/19/24 18:40 Diatrizoate Meglumine, Sodium 30 Ml Solution PO 08/19/24 18:41 30 ml ONCE ONE Administration Diazepam 2.5 mg 08/19/24 17:06 08/19/24 17:40 Diazepam 10 Mg/2 Ml Cartridge IVPUSH 08/19/24 17:07 2.5 mg STAT STA Administration Sodium Chloride 1,000 mls @ 999 mls/hr 08/19/24 17:30 08/19/24 17:38 Ns IV 08/19/24 18:30 999 mls/hr .Q1H1M KIM Administration Iohexol 85 ml 08/19/24 20:43 08/19/24 20:44 Iohexol 350 Mg/Ml 100 Ml Infus..Btl IV 08/19/24 20:44 85 ml ONCE ONE Administration Morphine Sulfate 4 mg 08/19/24 17:19 08/19/24 18:02 Morphine Sulfate 10 Mg/Ml Cartridge IVPUSH 08/19/24 17:20 4 mg ONCE ONE Administration Protocol Ondansetron HCl 4 mg 08/19/24 16:21 08/19/24 16:23 Ondansetron Odt 4 Mg Tab.Rapdis TRANSLINGU 08/19/24 16:22 4 mg ONCE ONE Administration Ondansetron HCl 4 mg 08/19/24 17:19 08/19/24 18:03 Ondansetron Hcl 4 Mg/2 Ml Vial IVPUSH 08/19/24 17:20 4 mg ONCE ONE Administration Ondansetron HCl 4 mg 08/19/24 21:14 08/19/24 21:39 Ondansetron Hcl 4 Mg/2 Ml Vial IVPUSH 08/19/24 21:15 4 mg ONCE ONE Administration Discharge Plan Discharge Clinical Impression: Abdominal pain, left lower quadrant Patient Disposition: Home, Self-Care Instructions: Abdominal Pain (ED) Additional Instructions: Evaluated with abdominal pain, ultrasound was limited due to gas in the bowels, you had a CAT scan done, cat scan findings discussed with you with there were no acute findings, your blood work and urinalysis has been reassuring, Zofran 4 mg every 6-8 hours needed for nausea or vomiting please follow up with the PCP worsening issues concerns come back to the ER Prescriptions: New ondansetron 4 mg tablet,disintegrating 4 mg PO Q8H PRN (Reason: nausea and vomiting) Qty: 4 0RF No Action ondansetron HCl 4 mg tablet 4 mg PO Q8H PRN (Reason: nausea and vomiting) 30 Days Qty: 20 3RF Ajovy Autoinjector 225 mg/1.5 mL auto-injector 675 mg subcut ONCE 90 Days Qty: 4.5 1RF Rx Instructions: administer 225mg subcutaneous x3 every 90 days riboflavin (vitamin B2) 400 mg tablet 400 mg PO DAILY 90 Days Qty: 90 3RF ketorolac 10 mg tablet 10 mg PO TID PRN (Reason: pain) 5 Days Qty: 15 0RF cefuroxime axetil 250 mg tablet 250 mg PO BID 7 Days Qty: 14 0RF sumatriptan succinate 100 mg tablet 100 mg PO Q2H PRN (Reason: migraine headache) 30 Days Qty: 12 6RF Rx Instructions: max 2 tabs per day or 4 tabs/week (may take with Tylenol) sumatriptan succinate 100 mg tablet 50 - 100 mg PO .COMPLEX PRN (Reason: migraine headache) 30 Days Qty: 12 6RF Rx Instructions: 50 - 100 mg orally at onset of headache, may repeat in 2 hrs PRN; max 2 tabs per day or 4 tabs/week (may take with Diclofenac) diclofenac potassium 50 mg tablet 50 mg PO BID PRN (Reason: migraine headache) 30 Days Qty: 30 3RF Rx Instructions: Do not take with meloxicam metoclopramide HCl 5 mg tablet 5 - 10 mg PO Q4-6H MDD 6 tabs PRN (Reason: nausea, vomiting, migraine) 30 Days Qty: 45 3RF mirtazapine 7.5 mg tablet 7.5 mg PO BEDTIME 30 Days Qty: 30 3RF pantoprazole 40 mg tablet,delayed release (DR/EC) 40 mg PO BID albuterol sulfate [Ventolin HFA] 90 mcg/actuation HFA aerosol inhaler 2 puff inhalation Q6H PRN (Reason: cough) sennosides [Senna Laxative] 8.6 mg tablet 8.6 mg PO DAILY bupropion HCl 300 mg tablet extended release 24 hr 300 mg PO QAM pregabalin 200 mg capsule 200 mg PO BID hydroxyzine HCl 25 mg tablet 25 mg PO BEDTIME meloxicam 15 mg tablet 15 mg PO DAILY rizatriptan 10 mg tablet 10 mg PO ONCE MDD 2 tabs PRN (Reason: migraine headache) 30 Days Qty: 12 3RF Rx Instructions: May repeat in 2 hrs, max 2 tabs per day Print Language: Arabic
[2024-08-19 14:21] LABS: MANUAL DIFF FLAG NO
[2024-08-19 14:22] LABS: Basophils Absolute Auto 0.1 X10*3/uL (0.0-0.2); Eosinophils Absolute Auto 0.4 X10*3/uL (0.0-0.4); Eosinophils Percent Auto 4.9 % (0-4); Hematocrit 38.2 % (37.0-47.0); Hemoglobin 13.1 g/dl (12.0-16.0); Imm Gran Abs Auto 0.01 X10*3/uL (0.00-0.03); Imm Gran Pct Auto 0.1 % (0.0-0.4); Lymphocytes Absolute Auto 2.1 X10*3/uL (1.2-4.9); Lymphocytes Percent Auto 27.2 % (20-40); Mean Corpuscular HGB Conc 34.3 g/dl (31.0-35.0); Mean Corpuscular Volume 87.6 fL (80.0-98.0); Mean Platelet Volume 9.3 fL (9.4-12.3); Monocytes Absolute Auto 0.9 X10*3/uL (0.1-1.2); Monocytes Percent Auto 10.9 % (2-11); Neutrophils Absolute Auto 4.4 x10*3/uL (2.0-8.3); Neutrophils Percent Auto 55.9 % (45-73); Platelet Count 339 X10*3/uL (160-400); Red Blood Count 4.36 X10*6/uL (4.20-5.50); Red Cell Distribution Width 13.9 % (11.0-16.0); White Blood Count 7.9 X10*3/uL (4.8-10.8)
[2024-08-19 14:55] LABS: Alanine Aminotransferase 28 U/L (0-31); Albumin Level 4.9 g/dL (3.5-5.0); Alkaline Phosphatase 94 U/L (39-117); Anion Gap 14 (12-20); Aspartate Amino Transferase 27 U/L (5-31); Bilirubin Direct < 0.2 mg/dL (0.0-0.5); Bilirubin Total 0.2 mg/dL (0.0-1.0); Blood Urea Nitrogen 14 mg/dL (9-16); Calcium 9.7 mg/dL (8.4-10.2); Carbon Dioxide 26 mmol/L (22-29); Chloride 108 mmol/L (96-108); Estimated Glomerular Filt Rate > 60; Glucose Random 79 mg/dL (60-115); HCG Quantitative < 2 mIU/mL; Lipase 28 U/L (8-78); Potassium 4.5 mmol/L (3.3-5.1); Sodium 143 mmol/L (135-145); Total Protein 7.6 g/dL (6.5-8.0)
[2024-08-19] MEDS: Acetaminophen 325 MG TABLET 975 MG PO (16:20)
[2024-08-19] MEDS: Ondansetron ODT 4 MG TAB.RAPDIS TRANSLINGU (16:23)
[2024-08-19 17:00] LABS: Appearance Urine Clear; Color Urine Dark Yellow; Glucose Urine UA Negative (Negative); Leukocyte Esterase Urine Negative (Negative); Nitrite Urine Negative (Negative); PH 5.5 (5.0-9.0); Specific Gravity - Urine 1.015 (1.005-1.025); UMIC TRIGGER UACC YES; Urine Blood Moderate (2+) (Negative); Urine Ketones 15 mg/dL (Negative); Urine Protein Negative (Neg-Trace)
[2024-08-19 17:02] LABS: Bacteria Urine None Seen (None Seen); Hyaline Casts Urine 0-2 /LPF (0-2); Squamous Epithelial Cell Urine 0-2 /HPF (0-2); WBC Urine 0-5 /HPF (0-5)
[2024-08-19 17:05] VITALS: BP 129/80; PULSE 64; RESP 22; TEMP 37.1; O2SAT 100
--- OUTSIDE RECORDS SUMMARY | 2024-08-19 17:12 | XMS_ITS | Encounter Summary ---
Author Organization [facility] Address [address] [place] [address] Care Team Providers Care Fire Extinguisher Technician Name Role Phone Abi Gómez DO Primary Care Provider [phone] Encounter Details Date Type Department Care Team (Late st Contact Info) Description 06/27/2024 Orders Only [facility] Emergency Department [address] [place], [place] [phone] Stepan Davis MD [address] [place] [address] Internal Medicine [place], [place] [id number] Social History Tobacco Use Types Packs/Day Years Used Date Smoking Tobacco: Never Passive Smoke Exposure: Past Smokeless Tobacco: Never Alcohol Use Standard Drinks/Week Comments Not Currently 0 (1 standard drink = 0.6 oz pur e alcohol) 15 years ago [facility] Utilities Answer Date Recorded In the past 12 months has e [employer], gas, oil, or water [employer] threatened to shut off services in your [...] Care Team (Late st Contact Info) Description 08/28/2024 11:40 AM EDT Follow-Up [facility] Rhe[facility]ology [facility] [address] [place] [address] Pyroglazer: Sohail Magana MD [address] [place] [address] 09/04/2024 10:00 AM EDT Appointment [facility] Pulmonary Function Lab [address] [place] [address] Abi Gómez DO [address] [place] [address] 09/19/2024 10:30 AM EDT Social Work [facility] [address] [place] [address] Monica Hurst LICSW [address] [place] [address] 12/02/2024 9:00 AM EDT Follow-Up [facility] Gastroenterology Clinic [address] [place] [address] Pyroglazer: Chris Lagos MD [address] [place] [address] 12/25/2024 10:30 AM EDT Office Visit [facility] b and b gang worker [address] [place] [address] Felisa Choudhury NP [address] [place] [address] documented as of this encounter Visit Diagnoses Not on filedocumented in this encounter Care Teams Fire Extinguisher Technician Relationship Specialty Start Date End Date Abi Gómez DO [address] [place] [address] PCP - General Internal Medicine 04/29/24 documented as of this encounter
[2024-08-19] MEDS: 0.9 % Sodium Chloride 1,000 ML 999 ML IV (17:38)
[2024-08-19] MEDS: diazePAM 10 MG/2 ML CARTRIDGE 2.5 MG IVPUSH (17:40)
[2024-08-19 18:00] VITALS: BP 119/73; PULSE 72; RESP 20; TEMP 36.9
[2024-08-19] MEDS: Morphine Sulfate 10 MG/ML CARTRIDGE 4 MG IVPUSH (18:02)
[2024-08-19] MEDS: ondansetron HCL 4 MG/2 ML VIAL IVPUSH ×2 (18:03→21:39)
[2024-08-19] MEDS: Diatrizoate Meglumine, Sodium 30 ML SOLUTION PO (18:40)
[2024-08-19 19:43] VITALS: BP 107/63; PULSE 57; RESP 18; TEMP 36.9
[2024-08-19] MEDS: iohexoL 350 MG/ML 100 ML INFUS..BTL 85 ML IV (20:44)
[2024-08-19 22:51] VITALS: BP 00/00; PULSE 0; RESP 0; TEMP -17.7; TEMP 0
== END 2024-08-19 22:52 | disposition home or self-care (01) ==
PROVIDERS: Physician Assistant Medical; Emergency Provider Emergency Medicine
DX: R10.32 Left lower quadrant pain (principal); R10.2 Pelvic and perineal pain; R11.2 Nausea with vomiting, unspecified; Z79.899 Other long term (current) drug therapy
CPT/HCPCS: 36415; 74177; 76856; 80048; 80076; 81001; 81003; 83690; 84702; 85025; 96361; 96374; 96375; 96376; 99284; J2270; J2405; J3360; Q9967

== ENCOUNTER → 2024-08-19 17:19 | Outpatient (BNV) | payer OTHER, SELFPAY | PROVIDERS: Emergency Provider Emergency Medicine; Visit Provider Specialist | DX: R10.32 Left lower quadrant pain (principal) | CPT/HCPCS: 74177 ==

== ENCOUNTER 2024-09-12 09:35 | Outpatient (REF) | payer OTHER, SELFPAY ==
--- NOTE | 2024-09-12 09:42 | EEG_ITS ---
This is a 16-channel EEG with an EKG lead. The patient is reported awake during the tracing. Background EEG rhythm is low amplitude fast with no obvious asymmetry or paroxysmal tendency. Photic stimulation does not produce any significant abnormality. Hyperventilation is not performed. Cardiac lead does not reveal any significant abnormality. No sharp wave spikes or paroxysmal tendency noted. IMPRESSION: Unremarkable EEG. MD SRIRAM Maloney/CHERIE / [id number]
--- OUTSIDE RECORDS SUMMARY | 2024-09-12 10:40 | XMS_ITS | Encounter Summary ---
Author Organization [facility] Address [address] [place] [address] Care Team Providers Care Occupational Therapy Aide Name Role Phone Abi Gómez DO Primary Care Provider [phone] Encounter Details Date Type Department Care Team (Late st Contact Info) Description 06/27/2024 Orders Only [facility] Emergency Department [address] [place], [place] [phone] Stepan Davis MD [address] [facility] Internal Medicine [place], [place] [phone] Social History Tobacco Use Types Packs/Day Years Used Date Smoking Tobacco: Never Passive Smoke Exposure: Past Smokeless Tobacco: Never Alcohol Use Standard Drinks/Week Comments Not Currently 0 (1 standard drink = 0.6 oz pur e alcohol) 15 years ago [facility] Utilities Answer Date Recorded In the past 12 months has [employer], gas, oil, or water [employer] threatened to shut off services in your [...] Care Team (Late st Contact Info) Description 09/13/2024 2:00 PM EDT Office Visit [facility] Urology Clinic [address] [place] [id number] Product Development Carpenter: Deidra Matute NP [address] [place] [address] 09/17/2024 9:30 AM EDT Office Visit [facility] Urogynecology Clinic [address] [place] [address] Product Development Carpenter: Chel Macias MD [address] [place] [address] 09/19/2024 10:30 AM EDT Social Work [facility] [address] [place] [address] Monica Hurst LICSW [address] [place] [address] 09/30/2024 11:00 AM EDT Appointment [facility] Pulmonary Function Lab [address] [place] [address] Abi Gómez DO [address] [place] [address] 12/02/2024 9:00 AM EDT Follow-Up [facility] Gastroenterology Clinic [address] [place] [address] Product Development Carpenter: Chris Lagos MD [address] [place] [address] 12/25/2024 10:30 AM EDT Office Visit [facility] organ tuner electronic [address] [place] [address] Felisa Choudhury NP [address] [place] [address] 03/05/2025 10:00 AM EST Follow-Up [facility] Rheumatology Clinic [address] [place] [address] Product Development Carpenter: Sohail Magana MD [address] [place] [address] documented as of this encounter Visit Diagnoses Not on filedocumented in this encounter Care Teams Occupational Therapy Aide Relationship Specialty Start Date End Date Abi Gómez DO [address] [place] [address] PCP - General Internal Medicine 04/29/24 documented as of this encounter
== END 2024-09-12 09:36 | disposition home or self-care (01) ==
LOC: HO.NEURO 09:35
PROVIDERS: Visit Provider Nurse Practitioner Family
DX: R47.9 Unspecified speech disturbances (principal); G43.009 Migraine without aura, not intractable, without status migrainosus
CPT/HCPCS: 95816

== ENCOUNTER 2024-11-04 13:31 | Outpatient (AMB) | payer OTHER, SELFPAY ==
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
== END 2024-11-04 15:00 | disposition home or self-care (01) ==
LOC: HO.HSMS 13:31
PROVIDERS: PCP Student in an Organized Health Care Education/Training Program; Visit Provider Nurse Practitioner Family
DX: H53.2 Diplopia (principal); H53.8 Other visual disturbances; G43.009 Migraine without aura, not intractable, without status migrainosus; R42 Dizziness and giddiness; R26.9 Unspecified abnormalities of gait and mobility; G47.9 Sleep disorder, unspecified; R06.83 Snoring; R06.81 Apnea, not elsewhere classified; G44.85 Primary stabbing headache
CPT/HCPCS: 98013

== ENCOUNTER 2024-12-10 11:16 | Outpatient (AMB) | payer OTHER, SELFPAY ==
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
--- OUTSIDE RECORDS SUMMARY | 2024-12-10 14:08 | XMS_ITS | Clinical Summary ---
Author Organization [employer] Address [address] [facility] [address] [place] [address] Care Team Providers Care Air Brush Decorator Name Role Phone Unavailable Primary Care Provider [...] 1985 HIV Screening 1985 SDOH Screening 1985 Disability Screening 1985 Alcohol/Substance Use Screening 1997 Tobacco Screening 1997 Family Planning (PISQ) 2000 HPV Vaccines (1 - 3-dose series) 2000 Hepatitis C Screening 06/29/2003 DTaP/Tdap/Td Vaccines (1 - Tdap) 2004 Hepatitis B Vaccines (1 of 3 - 19+ 3-dose series) 2004 Pap Smear 2006 Cervical Cancer Screening 06/29/2015 HPV/Cotest 06/29/2015 COVID-19 Vaccine ( - 2023-2 5 season) 2024 Influenza Vaccine (#1) 2024 Zoster Vaccines (1 of 2) 06/29/2035 RSV [...] age to complete this topic Meningococcal B Vaccine Aged Out No l onger eligible based on patient's age to complete this topic Meningococcal Vaccine Aged Out No pito liz eligible based on patient's age to complete this topic Pneumococcal Vaccine: Pediat rics (0 to 5 Years) and At-Risk Patients (6 to 49) Years Aged Out No longer eligible b ased on patient's age to complete this topic RSV under 20 months Aged Out No longe r eligible based on patient's age to complete this topic Rotavirus Vaccines Aged Out No longer eligible based on patient's age to complete this topic Insurance [facility] C3
--- OUTSIDE RECORDS SUMMARY | 2024-12-10 14:08 | XMS_ITS | Encounter Summary ---
Author Organization [facility] Address [address] [place] [address] Care Team Providers Care Store Manager Name Role Phone Abi Gómez DO Primary Care Provider [phone] Reason for Visit * Reason Onset Date Comments PAC RX Refill 10/20/2023 Encounter Details Date Type Department Care Team (Late st Contact Info) Description 10/20/2023 Telephone [facility] [address] [place] [phone] Telephone Intake, Staff PAC RX Refill Social History Tobacco Use Types Packs/Day Years Used Date Smoking Tobacco: Never Passive Smoke Exposure: Past Smokeless Tobacco: Never Alcohol Use Standard Drinks/Week Comments Not Currently 0 (1 standard drink = 0.6 oz pur e alcohol) 15 years ago [facility] Utilities Answer Date Recorded In the past 12 months has [employer], gas, oil, or water K[employer] threatened to shut off services in your [...] her this prescription has been and the [facility] pharmacy needs a new one. Thank you - pac documented in this encounter Plan of Treatment Upcoming Encounters Date Type Department Care Team (Late st Contact Info) Description 12/12/2024 11:15 AM EDT Office Visit [facility] [address] [place] [phone] Teodoro Beal MD [address] [place] [address] [place] [address] 12/20/2024 9:00 AM EDT Social Work [facility] [address] [place] [phone] Monica Hurst, [address] [address] 12/24/2024 11:00 AM EDT Office Visit [facility] [address] [place] [id number] Team Lead: Oneida Wilson MD PhD [address] [place] [phone] 12/25/2024 10:30 AM EDT Office Visit [facility] head resident [address] [place] [phone] Felisa Choudhury, RODRIGO [address] [place] [phone] 01/07/2025 10:30 AM EDT Follow-Up [facility] [address] [place] [phone] Team Lead: Chel Macias MD [address] [place] [phone] 01/07/2025 11:00 AM EDT Office Visit [facility] [address] [place] [id number] Team Lead: Deidra Matute NP [address] [place] [phone] 03/05/2025 10:00 AM EST Follow-Up [facility] [address] [place] [phone] Team Lead: Sohail Magana MD [address] [place] [address] [phone] 05/12/2025 11:00 AM EST Follow-Up [facility] [address] [place] [address] [phone] Team Lead: Zurdo Temple MD [address] [place] [address] Gastroenterology [place], [place] [phone] documented as of this encounter Visit Diagnoses Not on filedocumented in this encounter Care Teams Store Manager Relationship Specialty Start Date End Date Abi Gómez DO [address] [place] [address] [phone] PCP - General Internal Medicine 04/29/24 documented as of this encounter
--- OUTSIDE RECORDS SUMMARY | 2024-12-10 14:08 | XMS_ITS | Clinical Summary ---
Author Organization [facility] it Address [address] [place] [address] Care Team Providers Care Steam Press Tender Name Role Phone Wade Randall MD Primary Care Provider [phone] Allergies Active Allergy Reactions Criticality Noted Date [...] 2.2 x 1.4 x 1.7 cyst- [place] [facility] - recommend follow up 2-3 mo 03/07/2023 Fluid filled 2.3 cm left ovarian cyst. Previously seen hypoechoic left ovarian lesion is not demonstrated. Spondylosis 02/08/2023 Migraine without status migrainosus, not intract able 02/08/2023 Gastroesophageal reflux disease 02/08/2023 Fibromyalgia 02/08/2023 Endometriosis 02/08/2023 Constipation 02/08/2023 PTSD (post-traumatic stress disorder) 02/08/2023 Anxiety and depression 02/08/2023 Surgical History Surgery Date Site/Laterality Comments OOPHORECTOMY PROCEDURE: [facility] OOPHORECTOM[facility] PARTIAL/TOTAL UNI/BI; COMMENT: right side HYSTERECTOMY [...] 5 Years) and At-Risk Patients (6 to 49 Years) (1 of 2 - PCV) 2004 Cervical Cancer Screening: P ap Smear 2006 HIV Screening 04/13/2023 Social Influencers of Health Screening 04/13/2023 Depression Screening 03/20/2024 Influenza Vaccine (#1) 2024 Cholesterol Screening (Lipid Panel) 02/09/2028 02/08/2023 Hepatitis [...] Recently Relevant to Health Maintenance Care Teams Steam Press Tender Relationship Specialty Start Date End Date Wade Randall MD [address] [place] [address] PCP - General 03/03/23
--- OUTSIDE RECORDS SUMMARY | 2024-12-10 14:08 | XMS_ITS | Encounter Summary ---
Author Organization [facility] Address [address] [place] [address] Care Team Providers Care Traveling Engineer Name Role Phone Abi Gómez DO Primary Care Provider [phone] Encounter Details Date Type Department Care Team (Late st Contact Info) Description 06/27/2024 Orders Only [facility] Emergency Department [address], [place] [phone] Stepan Davis MD 55 [facility] Internal Medicine [place], [place] [phone] Social History Tobacco Use Types Packs/Day Years Used Date Smoking Tobacco: Never Passive Smoke Exposure: Past Smokeless Tobacco: Never Alcohol Use Standard Drinks/Week Comments Not Currently 0 (1 standard drink = 0.6 oz pur e alcohol) 15 years ago [facility] Utilities Answer Date Recorded In the past 12 months has [employer], gas, oil, or water [employer] threatened to shut off services in your [...] Description 12/12/2024 11:15 AM EDT Office Visit [facility] [address] [place] [address] Teodoro Beal MD [address] [place] [address] [place] [address] 12/20/2024 9:00 AM EDT Social Work [facility] [address] [place] [address] Monica Hurst LICSW [address] [place] [address] 12/24/2024 11:00 AM EDT Office Visit [facility] Urology Clinic [address] [place] [address] Production Statistical Clerk: Oneida [place] MD PhD [address] [place] [address] 12/25/2024 10:30 AM EDT Office Visit [facility] cardiovascular surgeon [address] [place] [phone] Felisa Choudhury, RODRIGO [address] [place] [address] 01/07/2025 10:30 AM EDT Follow-Up [facility] Urogynecology Clinic [address] [place] [address] Production Statistical Clerk: Chel Macias MD [address] [place] [address] 01/07/2025 11:00 AM EDT Office Visit [facility] Urology Clinic [address] [place] [address] Production Statistical Clerk: Deidra Matute NP [address] [place] [address] 03/05/2025 10:00 AM EST Follow-Up [facility] Rheumatology Clinic [address] [place] [address] 116[address] Production Statistical Clerk: Sohail Magana MD [address] [place] [address] 05/12/2025 11:00 AM EST Follow-Up [facility] Gastroenterology Clinic [address] [place] [address] Production Statistical Clerk: Zurdo [place] MD [address] [place] [address] [place] [address] documented as of this encounter Visit Diagnoses Not on filedocumented in this encounter Care Teams Traveling Engineer Relationship Specialty Start Date End Date Abi Gómez DO [address] [place] [address] PCP - General Internal Medicine 04/29/24 documented as of this encounter
--- OUTSIDE RECORDS SUMMARY | 2024-12-10 14:08 | XMS_ITS | Encounter Summary ---
Author Organization [employer] Address [address] [facility] 7 [place] [address] Care Team Providers Care Metal Furniture Assembler Name Role Phone Unavailable Primary Care Provider Unavailabl e Reason for Visit * Reason Onset Date Comments New patient 12/23/2022 Encounter Details Date Type Department Care Team (Late st Contact Info) Description 12/23/2022 Telephone [facility] MEDICINE [address] [place], [place] [phone] Young Mancini MD [address] [place], [place] [phone] New patient Social History Tobacco Use Types [...] been transfer over to wait list for [employer]. EFFECTIVE SINCE 12/23/2022 documented in this encounter Plan of Treatment Not on file documented as of this encounter Visit Diagnoses Not on filedocumented in this encounter
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
--- OUTSIDE RECORDS SUMMARY | 2024-12-10 14:09 | XMS_ITS | Encounter Summary ---
Author Organization [facility] Address [address] [place] [address] Care Team Providers Care Cookie Breaker Name Role Phone Abi Gómez DO Primary Care Provider [phone] Encounter Details Date Type Department Care Team (Late st Contact Info) Description 12/01/2024 Results Follow-Up [facility] Primary Care Clinic [address] [place] [address] Joshua [place] MD [address] [place], [place] [phone] Social History Tobacco Use Types Packs/Day Years Used Date Smoking Tobacco: Never Passive Smoke Exposure: Past Smokeless Tobacco: Never Alcohol Use Standard Drinks/Week Comments Not Currently 0 (1 standard drink = 0.6 oz pur e alcohol) 15 years ago [facility] Utilities Answer Date Recorded In the past 12 months has e [employer], gas, oil, or water [employer] threatened to shut off services in your [...] Description 12/12/2024 11:15 AM EDT Office Visit [facility] Primary Care Clinic [address] [place] [address] Teodoro Beal MD [address] [place] [address] General [place] [address] 12/20/2024 9:00 AM EDT Social Work [facility] [address] [place] [address] Monica Hurst LICSW [address] [place] [address] 12/24/2024 11:00 AM EDT Office Visit [facility] Urology Clinic [address] [place] [address] Hot Dip Tinning Supervisor: Oneida [place] MD PhD [address] [place] [address] 12/25/2024 10:30 AM EDT Office Visit [facility] beverage inspection machine tender [address] [place] [phone] Felisa Choudhury NP [address] [place] [address] 01/07/2025 10:30 AM EDT Follow-Up [facility] Urogynecology Clinic [address] [place] [address] 14763 Hot Dip Tinning Supervisor: Chel Macias MD [address] [place] [address] 01/07/2025 11:00 AM EDT Office Visit [facility] Urology Clinic [address] [place] [address] Hot Dip Tinning Supervisor: Deidra Matute NP [address] [place] [address] 03/05/2025 10:00 AM EST Follow-Up [facility] Rheumatology Clinic [address] [place] [address] 220[address] Hot Dip Tinning Supervisor: Sohail Magana MD [address] [place] [address] 05/12/2025 11:00 AM EST Follow-Up [facility] Gastroenterology Clinic [address] [place] [address]150 Hot Dip Tinning Supervisor: Zurdo [place] MD [address] [place] [address] [place] [address] documented as of this encounter Visit Diagnoses Not on filedocumented in this encounter Care Teams Cookie Breaker Relationship Specialty Start Date End Date Abi Gómez DO [address] [place] [address]88 PCP - General Internal Medicine 04/29/24 documented as of this encounter
--- OUTSIDE RECORDS SUMMARY | 2024-12-10 14:09 | XMS_ITS | Encounter Summary ---
Author Organization [facility] Address [address] [place] [address] Care Team Providers Care Distribution Designer Name Role Phone Abi Gómez DO Primary Care Provider [phone] Encounter Details Date Type Department Care Team (Late st Contact Info) Description 09/13/2024 Orders Only [facility] Interventional Radiology [address] [place] [address] Liz Springer MD [address] [place] [address] [phone] Social History Tobacco Use Types Packs/Day Years Used Date Smoking Tobacco: Never Passive Smoke Exposure: Past Smokeless Tobacco: Never Alcohol Use Standard Drinks/Week Comments Not Currently 0 (1 standard drink = 0.6 oz pur e alcohol) 15 years ago [facility] Utilities Answer Date Recorded In the past 12 months has e [employer], gas, oil, or water [employer] threatened to shut off services in your [...] Description 12/12/2024 11:15 AM EDT Office Visit [facility] Primary Care Clinic [address] [place] [address] Teodoro Beal MD [address] [place] [address] [place] [address] 12/20/2024 9:00 AM EDT Social Work [facility] Primary Care Clinic [address] [place] [address] Monica Hurst [address] [address] 12/24/2024 11:00 AM EDT Office Visit [facility] Urology Clinic [address] [place] [address] Delivery Technician: Oneida [place] MD PhD [address] [place] [address] 12/25/2024 10:30 AM EDT Office Visit [facility] image scientist [address] [place] [phone] Felisa Choudhury NP [address] [place] [address] 01/07/2025 10:30 AM EDT Follow-Up [facility] Urogynecology Clinic [address] [place] [address] Delivery Technician: Chel Macias MD [address] [place] [address] 01/07/2025 11:00 AM EDT Office Visit [facility] Urology Clinic [address] [place] [address] Delivery Technician: Deidra Matute NP [address] [place] [address] 03/05/2025 10:00 AM EST Follow-Up [facility] Rheumatology Clinic [address] [place] [address] Delivery Technician: Sohail Magana MD [address] [place] [address] 05/12/2025 11:00 AM EST Follow-Up [facility] Gastroenterology Clinic [address] [place] [address] Delivery Technician: Zurdo Temple MD [address] [place] [address] [place] [address] documented as of this encounter Visit Diagnoses Not on filedocumented in this encounter Care Teams Distribution Designer Relationship Specialty Start Date End Date Abi Gómez DO [address] [place] [address] PCP - General Internal Medicine 04/29/24 documented as of this encounter
--- OUTSIDE RECORDS SUMMARY | 2024-12-10 14:09 | XMS_ITS | Encounter Summary ---
Author Organization [facility] Address [address] [place] [address] Care Team Providers Care Architectural Technician Name Role Phone Abi Gómez DO Primary Care Provider [phone] Encounter Details Date Type Department Care Team (Late st Contact Info) Description 10/11/2024 Results Follow-Up [facility] Urology Clinic [address] [place] [address] Burglar Alarm Inspector: Deidra Matute NP [address] [place] [address] Social History Tobacco Use Types Packs/Day Years Used Date Smoking Tobacco: Never Passive Smoke Exposure: Past Smokeless Tobacco: Never Alcohol Use Standard Drinks/Week Comments Not Currently 0 (1 standard drink = 0.6 oz pur e alcohol) 15 years ago [facility] Utilities Answer Date Recorded In [...] Description 12/12/2024 11:15 AM EDT Office Visit [facility] Primary Care Clinic [address] [place] [address] Teodoro Beal MD [address] [place] [address] [place] [address] 12/20/2024 9:00 AM EDT Social Work [facility] Primary Care Clinic [address] [place] [address] Monica Hurst, SALES MARKETING DIRECTOR [address] [place] [address] 12/24/2024 11:00 AM EDT Office Visit [facility] Urology Clinic [address] [place] [address] Burglar Alarm Inspector: Oneida [place] MD PhD [address] [place] [address] 12/25/2024 10:30 AM EDT Office Visit [facility] underwriting account representative [address] [place] [phone] Felisa Choudhury, RODRIGO [address] [place] [address] 18[address] 01/07/2025 10:30 AM EDT Follow-Up [facility] Urogynecology Clinic [address] [place] [address] Burglar Alarm Inspector: Chel Macias MD [address] [place] [address] 01/07/2025 11:00 AM EDT Office Visit [facility] Urology Clinic [address] [place] [address] Burglar Alarm Inspector: Deidra Matute NP [address] [place] [address] 03/05/2025 10:00 AM EST Follow-Up [facility] Rheumatology Clinic [address] [place] [address] Burglar Alarm Inspector: Sohail Magana MD [address] [place] [address] 05/12/2025 11:00 AM EST Follow-Up [facility] Gastroenterology Clinic [address] [place] [address] [employer]glar Alarm Inspector: Zurdo [place] MD [address] [place] [address] [place] [address] documented as of this encounter Visit Diagnoses Not on filedocumented in this encounter Care Teams Architectural Technician Relationship Specialty Start Date End Date Abi Gómez DO [address] [place] [address] 244[address] PCP - General Internal Medicine 04/29/24 documented as of this encounter
--- OUTSIDE RECORDS SUMMARY | 2024-12-10 14:09 | XMS_ITS | Clinical Summary ---
Author Organization [facility] Address [address] [place] [address] Care Team Providers Care Supervisor Instrument Maintenance Name Role Phone Abi Gómez DO Primary Care Provider [phone] Allergies Active Allergy Reactions Criticality Noted Date Comments Ciprofloxacin Hives 06/02/2023 Duloxetine Hives 06/02/2023 Medications famotidine (PEPCID) 20 mg tablet Take 20 mg by mouth 2 times a day as needed for indigestion or heartburn. 05/10/19 24 Active Senna Laxative 8.6 mg tablet Take 1 tablet by mouth daily as needed. 08/10/19 24 Active Ajovy Autoinjector 225 mg/1.5 mL auto-injector 225 MG (1.5 ML) SUBCUTANEOUSLY ONCE FOR 30 DAYS ADMINISTER 225MG SC Q MONTH 03/01/20 24 Active ondansetron (ZOFRAN) 4 mg tablet SMARTSI Tablet(s) By Mouth Every 8 Hours PRN 03/06/20 24 Active riboflavin, vitamin B2, 400 mg tablet SMARTSI Tablet(s) By Mouth Daily 12/07/19 24 Active leuprolide (Lupron Depot) 3.75 mg IM injection Inject 3.75 mg into the shoulder, thigh, or buttocks muscle as directed every 28 days. Active Ventolin HFA 90 mcg/actuation inhaler Inhale 2 puffs (180 mcg total) by mouth every 6 hours as needed for wheezing or shortness of breath. 18 g 2 04/09/19 25 Active SUMAtriptan (IMITREX) 100 mg tablet 100 mg. 04/28/19 25 Active diclofenac (CATAFLAM) 50 mg tablet 50 mg. 04/04/19 25 Active metoclopramide (REGLAN) 5 mg tablet Take 5 mg by mouth 4 times a day. Active mirtazapine (REMERON) 15 mg tablet Take 7.5 mg by mouth nightly. Active norethindrone (AYGESTIN) 5 mg tablet Take 5 mg by mouth once a day. 08/02/19 25 Active ondansetron (ZOFRAN ODT) 4 mg disintegrating tablet Dissolve 4 mg in the mouth every 8 hours as needed for nausea or vomiting. 08/21/19 25 Active calcium carbonate-vitamin D3 600 mg-5 mcg (200 unit) per tablet Take 1 tablet by mouth 2 times a day. 08/21/19 25 Active cholecalciferol 1,000 unit tabletIndications: Vitamin D deficiency Take 1 tablet (1,000 Units total) by mouth once a day. 90 tablet 3 08/30/19 25 026 Active oxybutynin (DITROPAN) 5 mg tabletIndications: Bladder spasm Take 1 tablet (5 mg total) by mouth 3 times a day as needed (Take 1 tablet for bladder spasms, up to 3 times a day). 90 tablet 11 09/14/19 25 Active phenazopyridine (PYRIDIUM) 100 mg tablet Take 1 tablet (100 mg total) by mouth 3 times a day as needed for bladder spasms. 90 tablet 5 09/19/19 25 Active hydrOXYzine (VISTARIL) 25 mg capsule TAKE 1 CAPSULE BY MOUTH 3 (THREE) TIMES A DAY NEEDED FOR ITCHING 60 capsule 11/01/19 25 Active buPROPion XL (WELLBUTRIN XL) 300 mg tablet Take 1 tablet (300 mg total) by mouth every morning. 30 tablet 11 11/16/19 25 026 Active pregabalin (LYRICA) 200 mg capsuleIndications :Fibromyalgia Take 1 capsule (200 mg total) by mouth 2 times a day for 28 days. 56 capsule 11/30/19 25 025 Active Hospital, Clinic, or Other Facility Administered Medication Ordered Dose Route Frequency Start Date End Date Status methacholine nebulizer solution 1 kit 1 kit inhalation 5 times daily as needed 09/30/2024 Active Active Problems Problem Noted Date Diagnosed Date Recurrent UTI 09/18/2024 Chronic urinary bladder pain 09/18/2024 Pelvic pain 09/18/2024 Urinary frequency 09/18/2024 High-tone pelvic floor dysfunction 09/18/2024 Vitamin D deficiency 08/29/2024 Mild intermittent asthma, uncomplicated 08/02/19 25 Osteopenia of both hips 08/01/2024 Prediabetes 04/30/2024 Mixed hyperlipidemia 04/29/2024 Assessment & [...] NA PAP SMEAR: s/p hysterectomy, will request TELECOM MANAGER records. MAMMOGRAM: NA BONE DENSITY: NA HCP: reviewed Orders: Tdap vaccine greater than or equal to 7yo IM Hepatitis B surface antibody; Future Varicella zoster antibody, IgG; Future Influenza trivalent, PF (AFLURIA/FLULAVAL/FLUZONE/FLUARIX) vaccine 0.5 mL IM Migraine 04/29/2024 Assessment & Plan (04/29/2024 11:40 AM EST): Working with neurologist: Mitzi Mane, in [place] On various medications for this Gastroesophageal reflux [...] Plan (04/29/2024 11:40 AM EST): Follows with TELECOM MANAGER: Matt Edmondson, in [place]. On lupron Assessment & Plan (11/28/2023 2:13 PM EDT): Chronic pain d/t cysts Followed by TELECOM MANAGER Switch to meloxicam instead of ibuprofen [...] to ovarian cysts/endometriosis. - Used to follow Air Brake Mechanic in [place] with Lupron Rx - CT A/p here showed - There are 2 left ovarian cystic structures measuring 1.5 and 1.7 cm, either follicles or endometriomas in the setting of endometriosis. - Will need referral to Air Brake Mechanic on discharge. Fibromyalgia 06/02/2023 Assessment & Plan (04/29/2024 11:40 AM EST): Following with rheumatology On pregabalin and sevella Has rx for diclofenac, meloxicam, and ibuprofen. Discussed these are all NSAIDs, shouldn't take them all. Will stop all but diclofenac. Check BMP Doing PT Also following with [facility]- gets injections Declines [...] Date Resolved Date Rheumatoid arthritis with ne nelida rheumatoid factor 09/20/2023 09/20/2023 Pancreatitis, unspecified pancreatitis [...] up with GI outpatient. [facility] with negative rheumatoid factor 06/02/2023 09/20/2023 Assessment & Plan (06/04/2023 5:04 PM EDT): Patient has a reported history of rheumatoid arthritis for years for which she was previously on hydroxychloroquine. 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 Reached out to Rheumatology, plan to schedule follow up in outpatient setting. -CRP 2.1 -c/w home hydroxychloroquine - Referral to Rheum on discharge Encounters Date Type Department Care Team Description 12/01/2024 Results Follow-Up [facility] [address] [place] [id number] Joshua Schmidt MD 11/29/2024 Refill [facility] [address] [place] [address] 72096 Umang Whalen MD Fibromyalgia 11/14/2024 Refill [facility] [address] [place] [address] Abi Gómez, DO 10/30/2024 Refill [facility] [address] [place] [address] 9[address] Minnie Pozo MD 10/28/2024 12:48 PM EDT - 10/28/2024 11:59 PM EDT Hospital Encounter [facility] Ultrasound [address] [place] [address] Sondra Parsons MD Right upper quadrant abdominal pain Discharge Disposition: Home or Self Care (01) 10/28/2024 9:30 AM EDT Follow-Up [facility] [address] [place] [id number] Head Tennis Professional: Clem Shabazz MD Nausea and vomiting, unspecified vomiting type (Primary Dx); Chronic abdominal pain 10/25/2024 1:15 PM EDT Office Visit [facility] [address] [place] [address] [phone] Joshua Schmidt MD Right upper quadrant abdominal pain (Primary Dx); Microscopic hematuria 10/21/2024 Refill [facility] [address] [place] [address] [phone] Abi Gómez, DO 10/21/2024 Refill [facility] [address] [place] [address] 90371 Minnie Pozo MD Fibromyalgia 10/16/2024 Telephone [facility] [address] [place] [address] [phone] Head Tennis Professional: Chris Lagos MD 10/15/2024 myChart Message [facility] [address] [place] [address] 68126 Denise Sweet RN Urgent Care 10/15/2024 Telephone [facility] [address] [place] [address] Abi Gómez, Flank Pain; Difficulty Urinating (/) 10/11/2024 Results Follow-Up [facility] [address] [place] [address] Head Tennis Professional: Deidra Matute NP 10/09/2024 Telephone [facility] [address] [place] [address] Abi Gómez DO Letter for School/Work 10/04/2024 8:04 AM EDT - 10/04/2024 11:59 PM EDT Hospital Encounter [facility] [address] [place] [address] Gross hematuria Discharge Disposition: Home or Self Care (01) 09/30/2024 10:43 AM EDT - 09/30/2024 11:59 PM EDT Hospital Encounter [facility] Pulmonary Function Lab [address] [place] [phone] Abi Gómez DO Mild intermittent asthma, uncomplicated (HCC) Discharge Disposition: Home or Self Care (01) 09/30/2024 myChart Message [facility] [address] [place] [address] Head Tennis Professional: Sohail Magana MD Referral 09/23/2024 Refill [facility] [address] [place] [address] 8[address] Abi Gómez, DO Fibromyalgia 09/23/2024 Refill [facility] [address] [place] [address]67 Abi Gómez, DO Fibromyalgia 09/19/2024 10:30 AM EDT Social Work [facility] [address] [place] [address] 96105 Monica Hurst, GIS PROGRAMMER Encounter for screening involving social determinants of health (SDoH) (Primary Dx) 09/18/2024 10:00 AM EDT Office Visit [facility]necology [facility] [address] [place] [address] Head Tennis Professional: Chel Macias MD Recurrent UTI (Primary Dx); Chronic urinary bladder pain; Pelvic pain; Urinary frequency; High-tone pelvic floor dysfunction 09/13/2024 2:00 PM EDT Office Visit [facility] [address] [place] [address] Head Tennis Professional: Deidra Matute NP Gross hematuria (Primary Dx); Bladder spasm 09/13/2024 Orders Only [facility] Interventional Radiology [address] [place], [place] [id number] Liz Springer MD from Last 3 Months Immunizations Immunization Administration [...] e alcohol) 15 years ago [facility] Utilities Answer Date Recorded In the [...] Sign Reading Time Taken Comments Blood Pressure 112/74 10/28/2024 9:43 AM EDT Pulse 70 10/28/2024 9:43 AM EDT Temperature 36.9 C (98.4 F) 10/28/2024 9:43 AM EDT Respiratory Rate 20 10/28/2024 9:43 AM EDT Oxygen Saturation 99% 08/21/2024 1:35 PM EDT Inhaled Oxygen Concentration - - Weight 60.8 kg (134 lb) 10/28/2024 9:43 AM EDT Height 161.3 cm (5' 3.5 ) 09/18/2024 10:10 AM ED T Body Mass Index 23.36 09/18/2024 10:10 AM EDT Plan of Treatment Upcoming Encounters Date Type Department Care Team (Late st Contact Info) Description 12/12/2024 11:15 AM EDT Office Visit [facility] [address] [place] [address] [phone] Teodoro Beal MD [address] [place] [address] [place] [address] 12/20/2024 9:00 AM EDT Social Work [facility] [address] [place] [address] Monica Hurst, GIS PROGRAMMER [address] [place] [address] 12/24/2024 11:00 AM EDT Office Visit [facility] [address] [place] [address] Head Tennis Professional: Oneida Wilson MD PhD [address] [place] [address] 12/25/2024 10:30 AM EDT Office Visit [facility] director of manufacturing [address] [place] [address] Felisa Choudhury NP [address] [place] [address] 01/07/2025 10:30 AM EDT Follow-Up [facility] [address] [place] [phone] Head Tennis Professional: Chel Macias MD [address] [place] [address] 01/07/2025 11:00 AM EDT Office Visit [facility] [address] [place] [address] [place] [address] Head Tennis Professional: Deidra Matute NP [address] [place] [address] 03/05/2025 10:00 AM EST Follow-Up [facility] [address] [place] [address] Head Tennis Professional: Sohail Magana MD [address] [place] [address] 05/12/2025 11:00 AM EST Follow-Up [facility] [address] [place] [phone] Head Tennis Professional: Zurdo Temple MD [address] [place] [address] [place] [address] Health Maintenance Due Date Last Done Comments Pneumococcal Vaccine: Pediat jessica (0-5 Years) and At-Risk Patients (6-50 Years) (1 of 2 - PCV) 2004 COVID-19 Vaccine (1 - 2023-25 season) 2024 Influenza Vaccine (#1) 2024 04/29/2024 Hemoglobin A1C 04/29/2025 04/29/2024 Lipid Panel 04/29/2025 04/29/2024, 06/02/2023 Social Drivers of Health Aarti ual Screening 05/03/2025 05/03/2024 Depression Screening and Follow-Up 08/01/20252024 DTaP,Tdap,and Td Vaccines (2 - Td or Tdap) 04/29/2034 04/29/2024 RSV Vaccine (60+ years old a nd patients) (1 - 1-dose 75+ series) 2060 HIV Screening Completed 04/29/2024 Hepatitis C Screening Completed 04/29/2024 Oral Health Screening Completed 04/29/2024 Alcohol/Substance Use Screening Completed Hepatitis B Vaccines Discontinued Varicella Vaccines Discontinued Procedures * Due to [place] state law, this organization might not be sharing negative HIV tests. Procedure Name Priority Date/Time Associated Diagnosis Comments US ABDOMEN SINGLE ORGAN STAT 10/28/2024 1:33 PM EDT Right upper quadrant abdominal pain CBC AUTO DIFFERENTIAL Routine 10/25/2024 2:41 PM EDT Microscopic hematuria COMPREHENSIVE METABOLIC PANEL Routine 10/25/2024 2:41 PM EDT Microscopic hematuria ROBLES TOP, URN Routine 10/25/2024 2:37 PM EDT Right upper quadrant abdominal pain UA/CULTURE REFLEX Routine 10/25/2024 2:3 7 PM EDT Right upper quadrant abdominal pain URINALYSIS W/REFLEX TO MICROSCOPIC & CULTURE Routine 10/25/2024 2:37 PM EDT Right upper quadrant abdominal pain POCT AUTOMATED URINALYSIS DIPSTICK Routine 10/25/2024 2:[address] UROGRAM W WO CONTRAST Routine 10/04/2024 8:50 AM EDT Gross hematuria PULMONARY FUNCTION TEST Routine 09/30/2024 10:58 AM EDT Mild intermittent asthma, uncomplicated (HCC) URINE CULTURE, SPECIAL Routine 09/18/2024 11:47 AM EDT Recurrent UTI Urinary frequency URINALYSIS W/REFLEX TO MICROSCOPIC (NO CULTURE) Routine 09/13/2024 3:19 PM EDT Gross hematuria URINE CULTURE, ROUTINE Routine 09/13/2024 3:19 PM EDT Gross hematuria HEPATITIS C ANTIBODY W/REFLEX TO HCV RNA, QUANTITATIVE PCR Routine 04/29/2024 11:01 AM EST Need for hepatitis C screening test HEMOGLOBIN A1C Routine 04/29/2024 11:01 AM EST Concern about memory LIPID PANEL W/REFLEX TO DIRECT LDL Routine 04/29/2024 11:01 AM EST Mixed hyperlipidemia from Last 3 Months or Most Recently Relevant to Health Maintenance Results * Due to [place] state law, this organization might not be sharing negative HIV tests. * US Limited Abdomen Single Organ (10/28/2024 1:33 PM EDT) Anatomical Region Laterality Modality Body N/A Ultrasound 10/28/2024 1:42 PM EDT Impressions 10/28/2024 1:50 PM EDT No gallstones or right hydronephrosis to correlate with acute abdominal pain. Limited assessment of the pancreas, with no peripancreatic inflammatory fluid detected If this radiology report contains a blank impression section, it is an incomplete radiology report. Please contact the interpreting radiologist or applicable radiology division as soon as possible to obtain the completed interpretation. Workstation ID: [id number] Darcy 10/28/2024 1:50 PM EDT EXAMINATION: Limited ultrasound of the abdomen. INDICATION: Severe abdominal pain TECHNIQUE: Limited ultrasound evaluation of the right upper quadrant of the abdomen. Multiple grayscale and color Doppler images were obtained. COMPARISON: FINDINGS: LIVER: Normal hepatic size, contour and texture. No focal lesions. The portal vein is patent on color Doppler with hepatopetal flow. BILIARY: No cholelithiasis, gallbladder wall thickening, or pericholecystic fluid. Sonographic Moseley's sign is negative. No abnormal intrahepatic duct dilatation. The common bile duct measures 2.5 mm. PANCREAS: Some portions are unremarkable, but most of the gland is obscured by overlying bowel gas. No peripancreatic inflammatory fluid is demonstrated. PERITONEUM: No free fluid. RIGHT KIDNEY: Normal size, measuring 9.4 cm. No shadowing stone, hydronephrosis or textural abnormality. MIDLINE VASCULATURE: The visualized portion of the inferior vena cava is patent. The visualized portion of the abdominal aorta is normal. Resulting Agency Comment [id number] Procedure Note Champ Mora MD - 10/28/2024 EXAMINATION: Limited ultrasound of the abdomen. INDICATION: Severe abdominal pain TECHNIQUE: Limited ultrasound evaluation of the right upper quadrant ofthe abdomen. Multiple grayscale and color Doppler images were obtained. COMPARISON: FINDINGS: LIVER: Normal hepatic size, contour and texture. No focal lesions. Theportal vein is patent on color Doppler with hepatopetal flow. BILIARY: No cholelithiasis, gallbladder wall thickening, orpericholecystic fluid. Sonographic Moseley's sign is negative. No abnormalintrahepatic duct dilatation. The common bile duct measures 2.5 mm. PANCREAS: Some portions are unremarkable, but most of the gland isobscured by overlying bowel gas. No peripancreatic inflammatory fluid isdemonstrated. PERITONEUM: No free fluid. RIGHT KIDNEY: Normal size, measuring 9.4 cm. No shadowing stone,hydronephrosis or textural abnormality. MIDLINE VASCULATURE: The visualized portion of the inferior vena cava ispatent. The visualized portion of the abdominal aorta is normal. IMPRESSION: No gallstones or right hydronephrosis to correlate with acute abdominalpain. Limited assessment of the pancreas, with no peripancreatic inflammatoryfluid detected If this radiology report contains a blank impression section, it is anincomplete radiology report. Please contact the interpreting radiologistor applicable radiology division as soon as possible to obtain thecompleted interpretation. Workstation ID: [id number] us Sondra Parsons MD IMG US PROCEDURES Final Resu lt * CBC Auto Differential (10/25/2024 2:41 PM EDT) WBC 5.8 3.8 - 10.8 10*3/uL 10/25/2024 3:33 PM EDT [facility]otions[facility] [employer] [facility] RBC 4.00 3.80 - 5.10 10*6/uL 10/25/2024 3:33 PM EDT [facility] Hemoglobin 11.8 11.7 - 15.5 g/dL 10/25/2024 3:33 PM EDT [facility] Hematocrit 36.3 35.0 - 45.0 % 10/25/2024 3:33 PM EDT [facility] MCV 90.8 80.0 - 100.0 fL 10/25/2024 3:33 PM EDT [facility] MCH 29.5 27.0 - 33.0 pg 10/25/2024 3:33 PM EDT [facility] MCHC 32.5 32.0 - 36.0 g/dL 10/25/2024 3:33 PM EDT [facility] RDW 14.6 11.0 - 15.0 % 10/25/2024 3:33 PM EDT [facility] Platelets 327 140 - 400 10*3/uL 10/25/2024 3:33 PM EDT [facility] MPV 10.2 7.5 - 12.5 fL 10/25/2024 3:33 PM EDT [facility] Neutrophil % 56.7 % 10/25/2024 3:33 PM EDT [facility] Immature Grans % 0.2 0.0 - 0.9 % 10/25/2024 3:33 PM EDT [facility] Lymphocyte % 23.2 % 10/25/2024 3:33 PM EDT [facility] Monocyte % 13.4 % 10/25/2024 3:33 PM EDT [facility] Eosinophil % 5.5 % 10/25/2024 3:33 PM EDT [facility] Basophil % 1.0 % 10/25/2024 3:33 PM EDT [facility] Neutrophil # 3.29 1.50 - 7.80 10*3/uL 10/25/2024 3:33 PM EDT [facility] [employer] [facility] Immature Grans # <0.03 <=0.03 10*3/uL 10/25/2024 3:33 PM EDT [facility] [employer] [facility] Lymphocyte # 1.40 0.85 - 3.90 10*3/uL 10/25/2024 3:33 PM EDT [facility] [employer] [facility] Monocyte # 0.80 0.20 - 0.95 10*3/uL 10/25/2024 3:33 PM EDT [facility] [facility] LAB[facility] Eosinophil # 0.30 0.02 - 0.50 10*3/uL 10/25/2024 3:33 PM EDT [facility] [employer] [facility] Basophil # 0.10 0.00 - 0.20 10*3/uL 10/25/2024 3:33 PM EDT [facility] [employer] [facility] nRBC % 0.0 /100 WBCs 10/25/2024 3:33 PM EDT [facility] [employer] [facility] nRBC # <0.01 <0.01 10*3/uL 10/25/2024 3:33 PM EDT [facility] Blood Structure of peripheral vein / Unknown Venipuncture / Unknown 10/25/2024 2:41 PM EDT 10/25/2024 3:23 PM EDT us Sondra Parsons MD LAB BLOOD ORDERABLES Final R esult [facility] [address] [place] [address], * (ABNORMAL) Comprehensive Metabolic Panel (10/25/2024 2:41 PM EDT) NA 142 135 - 145 mmol/L 10/25/2024 4:02 PM EDT [facility] K 5.0 3.5 - 5.3 mmol/L 10/25/2024 4:02 PM EDT [facility] Cl 107 98 - 107 mmol/L 10/25/2024 4:02 PM EDT [facility] CO2 25 22 - 32 mmol/L 10/25/2024 4:02 PM EDT [facility] Anion Gap 10 5 - 15 10/25/2024 4:02 PM EDT [facility] Glucose 90 65 - 99 mg/dL 10/25/2024 4:02 PM EDT [facility] Creatinine 0.92 0.50 - 1.20 mg/dL 10/25/2024 4:02 PM EDT [facility] Calcium 9.2 8.6 - 10.5 mg/dL 10/25/2024 4:02 PM ED [facility] Total Protein 7.2 6.0 - 8.0 g/dL 10/25/2024 4:02 PM EDT [facility] Albumin 4.4 3.5 - 5.2 g/dL 10/25/2024 4:02 PM EDT [facility] Bilirubin, Total <0.2(L) 0.2 - 1.2 mg/dL 10/25/2024 4:02 PM EDT [facility] Alkaline Phosphatase 102 35 - 129 U/L 10/25/2024 4:02 PM EDT [facility] AST 25 10 - 40 U/L 10/25/2024 4:02 PM EDT [facility] ALT 16 10 - 40 U/L 10/25/2024 4:02 PM EDT [facility] BUN 15 7 - 23 mg/dL 10/25/2024 4:02 PM EDT [facility] eGFR 81 >=60 mL/min/1 .73m2 10/25/2024 4:02 PM EDT [facility] Comment:The estimated glomer ular [...] of Race in Diagnosing Kidney Disease . Globulin, Total 2.8 2.1 - 4.2 g/dL 10/25/2024 4:02 PM EDT [facility] A/G Ratio 1.6 1.5 - 3.0 10/25/2024 4:02 PM EDT [facility] [facility] Blood Structure of peripheral vein / Unknown Venipuncture / Unknown 10/25/2024 2:41 PM EDT 10/25/2024 3:30 PM EDT Sondra Parsons MD LAB BLOOD ORDERABLES Final R esult Performing Organization Address City/[facility]/ZIP Co de Phone Number [employer] [facility] [address] [place] [address], [place] * Robles Top, Urine (10/25/2024 2:37 PM EDT) Extra Tube Hold for add-ons. 10/25/2024 7:05 PM EDT [facility] Comment:Auto resulted. Urine Urine specimen collection, clean catch / Unknown Non-Blood Collection / Unknown 10/25/2024 2:37 PM EDT 10/25/2024 4:14 PM EDT us Sondra Parsons MD LAB URINE ORDERABLES Final R esult Performing Organization Address City/[facility]/ZIP Co de Phone Number [facility] [address] [place] [address], [place] * (ABNORMAL) Urinalysis W/Reflex to Microscopic & Culture (10/25/2024 2:37 PM EDT) Color, Urine Yellow Colorless, Light Yellow, Yellow, Dark Yellow 10/25/2024 4:34 PM EDT [facility] Clarity, Urine Clear Clear 10/25/2024 4:34 PM EDT [facility] Specific [place], Urine 1.025 <1.030 10/25/2024 4:34 PM EDT [facility] pH, Urine 7.0 4.6 - 8.0 10/25/2024 4:34 PM EDT [facility] Protein, Urine Trace(A) Negative 10/25/2024 4:34 PM EDT [facility] Glucose, Urine Normal Normal 10/25/2024 4:34 PM EDT [facility] [facility] Ketones, Urine Negative Negative 10/25/2024 4:34 PM EDT [facility] Bilirubin, Urine Negative Negative 10/25/2024 4:34 PM EDT [facility] Blood, Urine 2+(A) Negative 10/25/2024 4:34 PM EDT [facility] Nitrite, Urine Negative Negative 10/25/2024 4:34 PM EDT [facility] Urobilinogen, Urine Normal Normal 10/25/2024 4:34 PM EDT [facility] Leukocyte Esterase, Urine Negative Negative 10/25/2024 4:34 PM EDT [facility] WBC, Urine 1 0 - 2 /HPF 10/25/2024 4:34 PM EDT [facility] RBC, Urine 8(H) 0 - 2 /HPF 10/25/2024 4:34 PM EDT [facility] Hyaline Casts, Urine 0 0 - 2 /LPF 10/25/2024 4:[address] [facility] Squamous Epithelial Cells, Urine 2 /HPF 10/25/2024 4:[address] [facility] Bacteria, Urine Rare(A) None /HPF /HPF 10/25/2024 4:[address] [facility] Mucus, Urine Rare /LPF 10/25/2024 4:[address] [facility] Urine Urine specimen collection, clean catch / Unknown Non-Blood Collection / Unknown 10/25/2024 2:37 PM EDT 10/25/2024 4:14 PM EDT us Sondra Parsons MD LAB URINE ORDERABLES Final R esult [facility] LAB[facility]ORY [address] [place] [address], [place] * (ABNORMAL) POCT Automated Urinalysis Dipstick, interfaced (10/25/2024 2:34 PM EDT) Color, POCT Yellow Yellow, Light Yellow, Dark Yellow 10/25/2024 2:35 PM EDT [facility], [facility]OC Clarity, POCT Clear Clear 10/25/2024 2:35 PM EDT [facility], [facility] Glucose, POCT Negative Negative mg/dL 10/25/2024 2:35 PM EDT [facility], [facility] Bilirubin, POCT Small(A) Negative 10/25/2024 2:35 PM EDT [facility], [facility] Ketones, POCT Trace(A) Negative mg/dL 10/25/2024 2:35 PM EDT [facility], [facility] Specific [place], POCT 1.020 1.005 - 1.030 10/25/2024 2:35 PM EDT [facility], [facility] Blood, POCT Moderate(A) Negative 10/25/2024 2:35 PM EDT [facility], [facility] pH, POCT 7.0 5.0 - 8.0 10/25/2024 2:35 PM EDT [facility], [facility] Protein, POCT 30(A) Negative mg/dL 10/25/2024 2:35 PM EDT [facility], [facility] Urobilinogen, POCT 1.0 0.2, 1.0 EU/dL 10/25/2024 2:35 PM EDT [facility], [facility] Nitrite, POCT Negative Negative 10/25/2024 2:35 PM EDT [facility], [facility] Leukocyte Esterase, POCT Trace(A) Negative 10/25/2024 2:35 PM EDT [facility], [facility] Urine 10/25/2024 2:34 PM EDT 10/25/2024 2:35 PM EDT us Joshua Schmidt MD LAB POCT ORDERABLES - DEVICE Fin al Result Performing Organization Address City/State/[facility] Co de Phone Number [facility], [facility]OC [address] [place] [address], [place] * CT Urogram W WO Contrast (10/04/2024 8:50 AM EDT) Anatomical Region Laterality Modality Body Computed Tomogra phy 10/04/2024 9:37 AM EDT Impressions 10/07/2024 9:[address] urogram If this radiology report contains a blank impression section, it is an incomplete radiology report. Please contact the interpreting radiologist or applicable radiology division as soon as possible to obtain the completed interpretation. Workstation ID: [id number] Up-to-date CT equipment and radiation dose reduction techniques were employed. CTDIvol: 3.9 - 6.1 mGy. DLP: 476 mGy-cm. Narrative 10/07/2024 9:31 AM EDT Indication: Hematuria 39-year-old, known endometriosis. TECHNIQUE: Multidetector CT imaging was performed from the hemidiaphragms through to the pubic symphysis prior to and during intravenous contrast administration. Oral contrast was not administered. Sagittal and coronal reformatted images were also generated. . COMPARISON: 07/01/2024 contrast-enhanced CT. FINDINGS: Taking into account the additional noncontrast phase of this CT scan, there is no acute abnormality and no change from 07/01/2024. Resulting Agency Comment [id number] Procedure Note Terry Kimball MD - 10/07/2024 Indication: Hematuria 39-year-old, known endometriosis. TECHNIQUE: Multidetector CT imaging was performed from the hemidiaphragmsthrough to the pubic symphysis prior to and during intravenous contrastadministration. Oral contrast was not administered. Sagittal and coronalreformatted images were also generated. . COMPARISON: 07/01/2024 contrast-enhanced CT. FINDINGS: Taking into account the additional noncontrast phase of this CTscan, there is no acute abnormality and no change from 07/01/2024. IMPRESSION: Unremarkable CT urogram If this radiology report contains a blank impression section, it is anincomplete radiology report. Please contact the interpreting radiologistor applicable radiology division as soon as possible to obtain thecompleted interpretation. Workstation ID: [id number] Up-to-date CT equipment and radiation dose reduction techniques wereemployed. CTDIvol: 3.9 - 6.1 mGy. DLP: 476 mGy-cm. Deidra Mcnally NP IMG CT PROCEDURES Final Result * Pulmonary Function Test UNV; Spirometry, Lung Volumes, Diffusing Capacity; Spirometry before and after bronchodilator Per Protocol, Methacholine inhalation challenge (COLEMAN) Per Protocol; Lung volumes (Plethysmography); Diffusing capacity (DLco); un... (09/30/2024 10:58 AM EDT) FVC (L) 4.07 L [facility] FVC % Predicted 123 % [facility] FEV1 (L) 3.46 L [facility] FEV1 % Predicted 125 % [facility] FEV1/FVC Ratio 85 % [facility] 09/30/2024 10:5 8 AM EDT [facility] - 09/30/2024 10:58 AM EDT The study had suboptimal acceptability/reproducibility and, therefore, the findings may not reflect the patient's true lung function. Suggest clinical correlation with the reported results. There is no ventilatory impairment demonstrated by spirometry and lung volumes. The negative methacholine challenge test (no significant decline in FEV1) indicates normal bronchial responsiveness and argues against a diagnosis of asthma. The individual DLco efforts meet ATS/ERS acceptability, and meet repeatability standards. Measure of uncorrected diffusing capacity (DLco) is most consistent with normal alveolar capillary membrane surface area and diffusion properties for gas exchange. Abi Gómez DO PFT ORDERABLES Final Res ult [facility] * Urine Culture, Special (Cytoscopic/Nephrostomy/Suprapubic Catheter/Chronic Catheter/Straight Catheter) (09/18/2024 11:47 AM EDT) Culture No growth 09/20/2024 7:42 PM EDT [facility] Urine Urine specimen obtained via straight catheter / Unknown Non-Blood Collection / Unknown 09/18/2024 11:47 AM EDT 09/18/2024 1:40 PM EDT Narrative [facility] - 09/20/2024 7:42 PM EDT [facility] Received Date: MICRO NUMBER: [id number] SPECIMEN QUALITY: Adequate SOURCE: URINE STRAIGHT CATHETER STATUS: FINAL Chel Johnson MD LAB MICROBIOLOGY - GENERAL OR DERABLES Final Result [facility] [address], [place] [address], Work [employer] [facility] [address], [place] [address], * (ABNORMAL) Urinalysis W/Reflex to Microscopic (No Culture) (09/13/2024 3:19 PM EDT) Color, Urine Yellow Colorless, Light Yellow, Yellow, Dark Yellow 09/13/2024 4:42 PM T [facility] Clarity, Urine Clear Clear 09/13/2024 4:42 PM T [facility] Specific [place], Urine 1.018 <1.030 09/13/2024 4:42 PM [facility] pH, Urine 7.0 4.6 - 8.0 09/13/2024 4:42 PM T [facility] Protein, Urine Negative Negative 09/13/2024 4:42 PM T [facility] Glucose, Urine Normal Normal 09/13/2024 4:42 PM T [facility] Ketones, Urine Negative Negative 09/13/2024 4:42 PM [facility] Bilirubin, Urine Negative Negative 09/13/2024 4:42 PM [facility] Blood, Urine 1+(A) Negative 09/13/2024 4:42 PM [facility] Nitrite, Urine Negative Negative 09/13/2024 4:42 PM T [facility] Urobilinogen, Urine Normal Normal 09/13/2024 4:42 PM [facility] Leukocyte Esterase, Urine Trace(A) Negative 09/13/2024 4:42 PM [facility] WBC, Urine 3(H) 0 - 2 /HPF 09/13/2024 4:42 PM [facility] RBC, Urine 8(H) 0 - 2 /HPF 09/13/2024 4:42 PM T [facility] Hyaline Casts, Urine 0 0 - 2 /LPF 09/13/2024 4:42 PM [facility] Squamous Epithelial Cells, Urine 4 /HPF 09/13/2024 4:42 PM [facility] Bacteria, Urine None Seen None /HPF /HPF 09/13/2024 4:42 PM EDT [facility] Urine Urine specimen collection, clean catch / Unknown Non-Blood Collection / Unknown 09/13/2024 3:19 PM EDT 09/13/2024 3:57 PM EDT us Deidra Mcnally NP LAB URINE ORDERABLES Final Resul t Performing Organization Address City/[facility] Co de Phone Number [facility] CLINICAL PATHOLOGY LABORATORY [address] [place] [address], [place] * Urine culture (09/13/2024 3:19 PM EDT) Culture Mixed genital juana isolated. These superficial bacteria are not indicative of a urinary tract infection. No further organism identification is warranted on this specimen. 09/15/2024 10:18 AM EDT [facility] [employer] [facility] Urine Urine specimen collection, clean catch / Unknown Non-Blood Collection / Unknown 09/13/2024 3:19 PM EDT 09/13/2024 3:57 PM EDT Narrative [facility] - 09/15/2024 10:18 AM EDT [facility] Received Date: MICRO NUMBER: [id number] SPECIMEN QUALITY: Adequate SOURCE: URINE CLEAN CATCH STATUS: FINAL If clinically indicated, recollect clean-catch, mid-stream urine and transfer immediately to Urine Culture Transport Tube. us Deidra Mcnally NP LAB MICROBIOLOGY - GENERAL ORDER REVA Final Result Performing Organization Address City/[facility] Co de Phone Number [facility] [address], [place] [address], [place] [phone] [employer] [facility] [address], [place] [address], [place] [phone] * (ABNORMAL) Lipid Panel w/Reflex to Direct LDL (04/29/2024 11:01 AM EST) Cholesterol 227(H) <=199 mg/dL 04/29/2024 11:57 AM EST [facility] PATH[facility] LAB[facility] Triglycerides 64 <=149 mg/dL 04/29/2024 11:57 AM EST [facility] Cholesterol, HDL 65(H) 40 - 59 mg/dL 04/29/2024 11:57 AM EST [facility] Cholesterol, Non-HDL 162 mg/dL 04/29/2024 11:57 AM EST [facility] LDL Cholesterol 149(H) <100 mg/dL 04/29/2024 11:57 AM EST [facility] VLDL 12.8 mg/dL 04/29/2024 11:57 AM EST [facility] Cholesterol/HDL Ratio 3.5 <5.0 04/29/2024 11:57 AM EST [facility] Blood Structure of peripheral vein / Unknown Venipuncture / Unknown 04/29/2024 11:01 AM EST 04/29/2024 11:10 AM EST [facility] - 04/29/2024 11:57 AM EST Adult Treatment Panel III Guidelines of NCEP 2001 Category: Total Cholesterol (mg/dL) Desirable <200 Borderline High 200-239 High >=240 Category: LDL Cholesterol (mg/dL) Optimal <100 Near Optimal/Above Optimal 100-129 Borderline High 130-159 High 160-189 Very High >=190 Category: HDL Cholesterol (mg/dL) Low <40 High >=60 NCEP's Expert Panel on Blood Cholesterol in Children and Adolescents Category: Total Cholesterol (mg/dL) Desirable <170 Borderline High 170-199 High >=200 Category: LDL Cholesterol (mg/dL) Desirable <110 Borderline High 110-129 High >=130 us Abi Gómez DO LAB BLOOD ORDERABLES Janet sandoval Result [employer] [facility] [address] [place] [address], * Hepatitis C Antibody w/Reflex to HCV RNA, Quantitative PCR (04/29/2024 11:01 AM EST) Hepatitis C Antibody NON-[place]ACT [place] NON-[place]ACT [place] 04/29/2024 7:02 PM EST [facility] Comment: HCV antibody was non-reactive. There is no laboratory evidence of HCV infection. In most cases, no further action is required. However, if recent HCV exposure is suspected, a test for HCV RNA (test code 14125) is suggested. For additional information please refer to http://education.[employer]/faq/EYO31g0 (This link is being provided for informational/ educational purposes only.) Blood Structure of peripheral vein / Unknown Venipuncture / Unknown 04/29/2024 11:01 AM EST 04/29/2024 11:10 AM EST [facility] - 04/29/2024 7:02 PM EST [facility] Received Date: Abi Gómez DO LAB BLOOD ORDERABLES Janet l Result [facility] [address], [place] [address], Work [employer] [facility] [address], [place] [address], * (ABNORMAL) Hemoglobin A1c (04/29/2024 11:01 AM EST) [facility] Hemoglobin A1C 5.7(H) <5.7 % of total Hgb 04/29/2024 5:40 PM EST [facility] Comment: For someone without known diabetes, a [...] (MG/DL) 117 mg/dL 04/29/2024 5:40 PM EST [facility] eAG (MMOL/L) 6.5 mmol/L 04/29/2024 5:40 PM EST [employer] [facility] Blood Structure of peripheral vein / Unknown Venipuncture / Unknown 04/29/2024 11:01 AM EST 04/29/2024 11:09 AM EST [facility] - 04/29/2024 5:40 PM EST [facility] Received Date: Abi Gómez DO LAB BLOOD ORDERABLES Janet l Result [facility] [address], [place] [address], [facility] [employer] [facility] [address] [place] [address], from Last 3 Months or Most Recently Relevant to Health Maintenance Insurance [facility] MEDICAID Advance Directives Documents on File Type Date Recorded Patient 911 Emergency Services Dispatcher Expl anation Health Care Proxy 06/06/2023 6:10 PM 06-05 * Full Code (Latest Code Status on File) Date Activated Date Inactivated Comments 06/02/2023 11:37 PM 06/07/2023 10:48 PM Healthcare Agents on File Name Relationship Healthcare Agent Relationship Communication Liana Brenner Sister Alternate [facility] Care Agent [facility] Care Teams Supervisor Instrument Maintenance Relationship Specialty Start Date End Date Abi Gómez DO [address] [place] [id number] PCP - General Internal Medicine 04/29/24
== END 2024-12-10 14:25 | disposition home or self-care (01) ==
LOC: HO.HSMS 11:16
PROVIDERS: PCP Student in an Organized Health Care Education/Training Program; Visit Provider Nurse Practitioner Family
DX: G43.911 Migraine, unspecified, intractable, with status migrainosus (principal); H53.2 Diplopia; H53.8 Other visual disturbances; G43.009 Migraine without aura, not intractable, without status migrainosus; R42 Dizziness and giddiness; G47.9 Sleep disorder, unspecified; R06.83 Snoring; R06.81 Apnea, not elsewhere classified; G44.85 Primary stabbing headache
CPT/HCPCS: 98006